=== PATIENT | female | born 1945 | race Hispanic/Latino ===

== ENCOUNTER 2020-11-29 00:52 | Emergency (ER) | payer OTHER ==
[2020-11-29 01:36] LABS: Absolute Lymphocytes (CBC) 0.8 K/uL (0.7-4.9); Basophils % 0.5 % (0-1.3); Lymphocytes % 6.6 % (15.3-44.8); MPV 9.1 fL (7.6-11.3); RBC Red Blood Cell Count 4.41 M/uL (3.86-4.86)
[2020-11-29] MEDS ORDERED: ONDANSETRON 4 MG/2 ML VIAL ONE ×2 (01:41→01:45)
[2020-11-29] MEDS ORDERED: NA CHLORIDE 0.9% 1,000 ML ONE (01:41)
[2020-11-29] MEDS ORDERED: NA CHLORIDE 0.9% 0 ML ONE (01:45)
[2020-11-29 01:47] LABS: ALT/SGPT 28 U/L (12-78); AST/SGOT 29 U/L (15-37); Albumin 3.9 g/dL (3.4-5.0); Alkaline Phosphatase 105 U/L (45-117); BUN Blood Urea Nitrogen 23 mg/dL (7-18); Bicarbonate 29 mmol/L (21-32); Bilirubin Direct < 0.1 mg/dL (0-0.2); Bilirubin Total 0.4 mg/dL (0.2-1.0); Glucose Level 139 mg/dL (74-106); Lipase 283 U/L (73-393); Potassium 4.2 mmol/L (3.5-5.1); Protein, Total 7.7 g/dL (6.4-8.2); Sodium Level 140 mmol/L (136-145)
[2020-11-29 04:00] LABS: Urine Bacteria <20 /HPF (<20); Urine RBC <5 /HPF (NONE SEEN)
--- NOTE | 2020-11-29 04:32 | ER ---
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 S/S STARTED APPROX 1.5 HRS AGO. Coronavirus screen: Vaccine status: Patient reports receiving the 2nd dose of the covid vaccine. Ebola Screen: No symptoms or risks identified at this time. Initial Sepsis Screen: Does the patient meet any 2 criteria? No. Patient's initial sepsis screen is negative. Does the patient have a suspected source of infection? No. Patient's initial sepsis screen is negative. Risk Assessment: Do you want to hurt yourself or someone else? Patient reports no desire to harm self or others. Onset of symptoms was November 28, 2020. 01:05 Method Of Arrival: Ambulatory dc2 01:05 Acuity: PAULA 3 dc2 Triage Assessment: 01:09 General: Appears in no apparent distress. Behavior is calm, cooperative, appropriate dc2 for age. Pain: Complains of pain in abdomen, head (posterior) Pain radiates to shoulders Pain currently is 4 out of 10 on a pain scale. at worst was 10 out of 10 on a pain scale. level that patient reports is acceptable is 0 out of 10 on a pain scale. Quality of pain is described as aching, crampy, Pain began 2 hours ago. EENT: No signs and/or symptoms were reported regarding the EENT system. Neuro: Level of Consciousness is awake, alert, Oriented to person, place, time, situation, Reports headache "seeing lights". Cardiovascular: No deficits noted. Rhythm is sinus rhythm. Respiratory: No deficits noted. GI: Reports diarrhea, vomiting. : No signs and/or symptoms were reported regarding the genitourinary system. Derm: No signs and/or symptoms reported regarding the dermatologic system. Musculoskeletal: Reports pain in shoulders. Historical: - Allergies: 01:09 No Known Allergies; dc2 - Home Meds: : Unable to obtain [Active]; dc2 - PMHx: : Asthma; High Cholesterol; Hypothyroidism; Pancreatitis; dc2 - PSHx: : HYSTERECTOMY; Cholecystectomy; Hemorrhoidectomy; dc2 - Immunization history:: Adult Immunizations up to date, Client reports receiving the 2nd dose of the Covid vaccine. - Social history:: Smoking status: Patient denies any tobacco usage or history of. Patient/guardian denies using alcohol, street drugs. - Family history:: not pertinent. - Hospitalizations: : No recent hospitalization is reported. Screenin:13 Abuse screen: Denies threats or abuse. Denies injuries from another. Nutritional dc2 screening: No deficits noted. Tuberculosis screening: No symptoms or risk factors identified. Fall Risk None identified. Assessment: 01:00 General: Appears in no apparent distress. uncomfortable, slender, well groomed, dc2 Behavior is calm, cooperative, Yoruba speaking only, son at bedside with .. 01:00 Pain: Denies pain. Neuro: No deficits noted. Denies blurred vision dizziness, dc2 photophobia. 01:00 Neuro: Reports headache occipital area, back of head that radiates into neck and dc2 shoulders, denies any headache or pain at this time in the ER. 01:00 Cardiovascular: No deficits noted. Denies chest pain, shortness of breath. Respiratory: dc2 No deficits noted. Breath sounds are clear bilaterally. 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 Has not vomited since. Denies nausea at this time. Bowel sounds present X 4 quads. : No signs and/or symptoms were reported regarding the genitourinary system. Musculoskeletal: No deficits noted. Capillary refill < 3 seconds, in bilateral toes. Pt ambulate with steady gait into room 26 with son at side. Vital Signs: 01:05 BP 135 / 73; Pulse 88; Resp 18 S; Temp 98.4(O); Pulse Ox 99% ; Weight 65.77 kg (R); dc2 Height 4 ft. 11 in. (149.86 cm); Pain 4/10; 01:45 BP 135 / 63; Pulse 73; Resp 17; Pulse Ox 99% ; Pain 0/10; dc2 02:45 BP 134 / 69; Pulse 71; Resp 16; Pulse Ox 99% ; Pain 0/10; dc2 03:45 BP 112 / 48; Pulse 72; Resp 16; Pulse Ox 98% ; Pain 0/10; dc2 04:45 BP 127 / 57; Pulse 83; Resp 16; Temp 97.2(O); Pulse Ox 99% on R/A; Pain 0/10; dc2 01:05 Body Mass Index 29.29 (65.77 kg, 149.86 cm) dc2 ED Course: 00:54 Patient arrived in ED. bp1 01:03 Sarath Ibrahim MD is Attending Physician. rn 01:09 Triage completed. dc2 01:09 Arm band placed on Patient placed in an exam room, on a stretcher, on court recording monitor, dc2 on pulse oximetry. 01:13 Patient has correct armband on for positive identification. Placed in gown. Bed in low dc2 position. Call light in reach. Side rails up X 1. 01:17 Basic Metabolic Panel Sent. dc2 01:17 CBC with Diff Sent. dc2 01:17 Hepatic Function Sent. dc2 01:[address] Scan. dc2 01:30 phototypesetting equipment monitor on. Pulse ox on. NIBP on. Door closed. Lights dimmed. Warm blanket dc2 given. 01:47 No provider procedures requiring assistance completed. dc2 01:[address] via stretcher. dc2 01:58 No apparent distress. dc2 02:11 Patient moved back from CT. dc2 02:15 CT Abd/Pelvis - IV Contrast Only In Process Unspecified. EDMS 02:30 Bed in low position. Call light in reach. Side rails up X 1. Adult w/ patient. Cardiac dc2 monitor on. Pulse ox on. NIBP on. Door closed. Lights dimmed. 03:30 Assisted to bathroom. Urine sample collected and sent to lab. dc2 03:30 Urine collected: clean catch specimen, clear, Amount Voided: 800mL. dc2 04:31 Mario Fuchs MD is Referral Physician. rn 04:52 IV discontinued, intact, bleeding controlled, No redness/swelling at site. Pressure dc2 dressing applied. Administered Medications: 01:16 Drug: NS 0.9% 1000 ml Route: IV; Rate: 1000 ml; Site: right antecubital; dc2 02:33 Follow up: IV Status: Completed infusion; IV Intake: 1000ml dc2 01:17 Drug: Zofran (Ondansetron) 4 mg Route: IVP; Site: right antecubital; dc2 02:33 Follow up: Response: Nausea is decreased dc2 04:28 Drug: LoMOTIL (diphenoxylate-atropine) 2 tabs Route: PO; dc2 04:46 Follow up: Response: No adverse reaction dc2 04:51 Follow up: Response: No adverse reaction dc2 Intake: 02:33 IV: 1000ml; Total: 1000ml. dc2 Output: 03:40 Urine: 800ml (Voided); Total: 800ml. dc2 Outcome: 04:32 Discharge ordered by . rn 04:52 Discharged to home ambulatory. dc2 04:52 Condition: stable 04:52 Discharge instructions given to Instructed on discharge instructions, follow up and referral plans. Demonstrated understanding of instructions, follow-up care, Prescriptions given X 1. 04:55 Patient left the ED. dc2 Signatures: Dispatcher [employer] EDMS Sarath Ibrahim MD MD rn Paniauga, Brittany bp1 Reynard, Mike, RN RN mr2 Latesha Dawn RN RN dc2 Corrections: (The following items were deleted from the chart) 01:58 00:58 [place], JERRELL is Primary Nurse. mr2 dc2
--- NOTE | 2020-11-29 04:32 | EDPHYS ---
Physician Documentation [facility] Name: Rosalba Henry Age: 75 yrs Sex: Female : 1945 Arrival Date: 11/29/2020 Time: 00:54 Bed 26 Private MD: ED Physician Sarath Ibrahim HPI: 11/29 01:23 This 75 yrs old Female presents to ER via Ambulatory with complaints of rn Vomiting/Diarrhea. 01:23 The patient presents to the emergency department with nausea, vomiting, diarrhea, rn abdominal pain. Onset: The symptoms/episode began/occurred today. Possible causes: unknown. The symptoms are aggravated by nothing. The symptoms are alleviated by nothing. Associated signs and symptoms: Pertinent positives: abdominal pain, diarrhea, nausea, vomiting, Pertinent negatives: GI bleeding. Severity of symptoms: At their worst the symptoms were moderate in the emergency department the symptoms have improved. The patient has experienced similar episodes in the past. The patient has been recently seen by a physician:. Patient reports 5 or 6 episodes of diarrhea along with one episode of vomiting today. Family member brought her in because she had numerous episodes of diarrhea. Diarrhea was nonbloody. Emesis was nonbloody. Recently seen by Dr. Fuchs with stool studies and family told was okay. Family member reports intermittent episodes of diarrhea but each episode less than today's amount of diarrhea. No fever. Reports abdominal pain has improved but initially lower abdominal pain.. Historical: - Allergies: 01:09 No Known Allergies; dc2 - Home Meds: :09 Unable to obtain [Active]; dc2 - PMHx: 01:09 Asthma; High Cholesterol; Hypothyroidism; Pancreatitis; dc2 - PSHx: 01:09 HYSTERECTOMY; Cholecystectomy; Hemorrhoidectomy; dc2 - Immunization history:: Adult Immunizations up to date, Client reports receiving the 2nd dose of the Covid vaccine. - Social history:: Smoking status: Patient denies any tobacco usage or history of. Patient/guardian denies using alcohol, street drugs. - Family history:: not pertinent. - Hospitalizations: : No recent hospitalization is reported. ROS: 01:23 Constitutional: Negative for fever, chills, and weight loss, Eyes: Negative for injury, rn pain, redness, and discharge, ENT: Negative for injury, pain, and discharge, Neck: Negative for injury, pain, and swelling, Cardiovascular: Negative for chest pain, palpitations, and edema, Respiratory: Negative for shortness of breath, cough, wheezing, and pleuritic chest pain, Abdomen/GI: Positive for abdominal pain/nausea/vomiting/diarrhea Back: Negative for injury and pain, : Negative for injury, bleeding, discharge, and swelling, MS/Extremity: Negative for injury and deformity, Skin: Negative for injury, rash, and discoloration, Neuro: Negative for headache, weakness, numbness, tingling, and seizure. Exam: 01:23 Constitutional: This is a well developed, well nourished patient who is awake, alert, rn and in no acute distress. Head/Face: Normocephalic, atraumatic. Eyes: Pupils equal round and reactive to light, extra-ocular motions intact. Lids and lashes normal. Conjunctiva and sclera are non-icteric and not injected. Cornea within normal limits. Periorbital areas with no swelling, redness, or edema. ENT: Moist mucous membranes Cardiovascular: Regular rate and rhythm. No pulse deficits. Respiratory: No increased work of breathing, no retractions or nasal flaring. Abdomen/GI: Soft, non-tender, nondistended, no masses Skin: Warm, dry MS/ Extremity: Pulses equal, no cyanosis. Neuro: Awake and alert, GCS 15, oriented to person, place, time, and situation. Motor strength 5/5 in all extremities. Sensory grossly intact. Cerebellar exam normal. Vital Signs: 01:05 BP 135 / 73; Pulse 88; Resp 18 S; Temp 98.4(O); Pulse Ox 99% ; Weight 65.77 kg (R); dc2 Height 4 ft. 11 in. (149.86 cm); Pain 4/10; 01:45 BP 135 / 63; Pulse 73; Resp 17; Pulse Ox 99% ; Pain 0/10; dc2 02:45 BP 134 / 69; Pulse 71; Resp 16; Pulse Ox 99% ; Pain 0/10; dc2 03:45 BP 112 / 48; Pulse 72; Resp 16; Pulse Ox 98% ; Pain 0/10; dc2 04:45 BP 127 / 57; Pulse 83; Resp 16; Temp 97.2(O); Pulse Ox 99% on R/A; Pain 0/10; dc2 01:05 Body Mass Index 29.29 (65.77 kg, 149.86 cm) dc2 MDM: 01:03 Patient medically screened. rn 04:31 Differential diagnosis: Nonspecific abd pain, gastritis, pancreatitis, appendicitis, rn diverticulitis, viral gastroenteritis, gastroenteritis. Data reviewed: vital signs, nurses notes, lab test result(s), radiologic studies, CT scan, and as a result, I will discharge patient. Counseling: I had a detailed discussion with the patient and/or guardian regarding: the historical points, exam findings, and any diagnostic results supporting the discharge/admit diagnosis, lab results, radiology results, the need for outpatient follow up, to return to the emergency department if symptoms worsen or persist or if there are any questions or concerns that arise at home. Response to treatment: the patient's symptoms have markedly improved after treatment, and as a result, I will discharge patient. Special discussion: Based on the patient's Hx, exam, and Dx evaluation, there is no indication for emergent surgery or inpatient Tx. It is understood by the patient/guardian that if the Sx's persist or worsen they need to return immediately for re-evaluation. I discussed with the patient/guardian in detail that at this point there is no indication for admission to the hospital. It is understood, however, that if the symptoms persist or worsen the patient needs to return immediately for re-evaluation. ED course: Patient without any further nausea or vomiting or diarrhea while here in ER. Labs and swabs unremarkable. UA clean. CT abdomen pelvis negative for acute findings. Will DC home with return precautions and as needed Zofran. 11/29 01:08 Order name: Basic Metabolic Panel; Complete Time: 02: rn 11/29 01:08 Order name: CBC with Diff; Complete Time: : rn 11/29 01:08 Order name: Hepatic Function; Complete Time: : rn 11/29 01:08 Order name: Lipase; Complete Time: : rn 11/29 01:10 Order name: Urine Microscopic Only; Complete Time: 04:10 rn 11/29 01:08 Order name: IV Saline Lock; Complete Time: : rn 11/29 01:08 Order name: Labs collected and sent; Complete Time: : rn 11/29 01:08 Order name: CT Abd/Pelvis - IV Contrast Only rn 11/29 01:10 Order name: Urine Dipstick-Ancillary (obtain specimen); Complete Time: 04:29 rn 11/29 01:24 Order name: SARS-COV-2 RT PCR; Complete Time: 02:32 EDMS Administered Medications: 01:16 Drug: NS 0.9% 1000 ml Route: IV; Rate: 1000 ml; Site: right antecubital; dc2 02:33 Follow up: IV Status: Completed infusion; IV Intake: 1000ml dc2 01:17 Drug: Zofran (Ondansetron) 4 mg Route: IVP; Site: right antecubital; dc2 02:33 Follow up: Response: Nausea is decreased dc2 04:28 Drug: LoMOTIL (diphenoxylate-atropine) 2 tabs Route: PO; dc2 04:46 Follow up: Response: No adverse reaction dc2 04:51 Follow up: Response: No adverse reaction dc2 Disposition Summary: 11/29/20 04:32 Discharge Ordered Location: Home rn Problem: new rn Symptoms: have improved rn Condition: Stable rn Diagnosis - Vomiting, unspecified rn - Diarrhea, unspecified rn Followup: rn - With: Mario Fuchs MD - When: As needed - Reason: Recheck today's complaints, Re-evaluation by your physician Discharge Instructions: - Discharge Summary Sheet rn - Diarrhea, Adult rn - Nausea and Vomiting, Adult rn Forms: - Medication Reconciliation Form rn - Thank You Letter rn - Antibiotic internal audit consultant - Prescription Opioid Use rn Prescriptions: - ondansetron 4 mg Oral tablet,disintegrating - take 1 tablet by ORAL route every 8 hours As needed; 20 tablet; Refills: 0, rn Product Selection Permitted Signatures: Dispatcher [employer] EDOK Sarath Ibrahim MD MD rn López, Latesha RN RN dc2 Corrections: (The following items were deleted from the chart) 01: 01:10 CORONAVIRUS+MR.LAB.BRZ ordered. [facility] EDOK 01:25 01:23 Constitutional: Negative for fever, chills, and weight loss, Eyes: Negative for rn injury, pain, redness, and discharge, Neck: Negative for injury, pain, and swelling, Cardiovascular: Negative for chest pain, palpitations, and edema, Respiratory: Negative for shortness of breath, cough, wheezing, and pleuritic chest pain, Abdomen/GI: Positive for abdominal pain/nausea/vomiting/diarrhea Back: Negative for injury and pain, : Negative for injury, bleeding, discharge, and swelling, MS/Extremity: Negative for injury and deformity, Skin: Negative for injury, rash, and discoloration, Neuro: Negative for headache, weakness, numbness, tingling, and seizure, rn
[2020-11-29] MEDS ORDERED: DIPHENOX/ATROP SULF 1 TAB PO ONE (04:53)
[2020-11-29 05:11] VITALS: BP 127/57; TEMP 97.2; O2SAT 99
--- NOTE | 2020-11-29 13:48 | RAD REPORT ---
EXAM DESCRIPTION: CT - Abdomen Pelvis W Contrast - 11/29/2020 6:56 am CLINICAL HISTORY: The patient is 75 years old and is Female; Abd pain;Nausea / vomiting TECHNIQUE: Axial computed tomography images of the abdomen and pelvis with intravenous contrast. S agittal and coronal reformatted images were created and reviewed. This CT exam was performed using one or more of the following dose reduction techniques: automated exposure control, adjustment of t he mA and/or kV according to patient size, and/or use of iterative reconstruction technique. COMPARISON: No relevant prior studies available. FINDINGS: Lung bases: Unremarkable. No mass. No consolidation. Mediastinum: Small hiatal hernia. ABDOMEN: Liver: Unremarkable. No mass. Gallbladder and bile ducts: Gallbladder is surgically absent. No ductal dilation. Pancreas: Unremarkable. No mass. No ductal dilation. Spleen: Unremarkable. No splenomegaly. Adrenals: Unremarkable. No mass. Kidneys and ureters: Unremarkable. No solid mass. No hydronephrosis. Stomach and bowel: Sigmoid diverticula. No obstruction. No mucosal thickening. PELVIS: Appendix: No findings to suggest acute appendicitis. Bladder: Unremarkable. No mass. Reproductive: Uterus is not seen. ABDOMEN and PELVIS: Intraperitoneal space: Unremarkable. No free air. No significant fluid collection. Bones/joints: No acute fracture. No dislocation. Soft tissues: Hyperdensities within the anterior abdominal wall. Correlate with surgical history. Vasculature: Scattered atherosclerotic vascular calcifications. No abdominal aortic aneurysm. Lymph nodes: Unremarkable. No enlarged lymph nodes. IMPRESSION: No acute findings in the abdomen or pelvis. Electronically signed by: Jeremias Hill MD 11/29/2020 2:50 AM CDT Due to temporary technical issues with the PACS/Fluency reporting system, reports are being signed by the in house radiologists without review as a courtesy to insure prompt reporting. The interpreting radiologist is fully responsible for the content of the report.
== END 2020-11-29 04:55 | disposition home or self-care (01) ==
LOC: ER 00:52
DX: R19.7 Diarrhea, unspecified (principal); Z20.822 Contact with and (suspected) exposure to COVID-19
CPT/HCPCS: 96361; 85025; 80048; 36415; 80076; 81015; 83690; 74177; 96374; 99285; U0003; Q9967; J7030; J2405; J7040

== ENCOUNTER 2022-09-06 15:04 | Emergency (ER) | payer OTHER ==
--- OUTSIDE RECORDS SUMMARY | 2022-09-06 15:11 | XMS REPORT | Continuity of Care Document ---
:1945 [facility] t Address [address] [address] [place] [address] Care Team Providers Name Role Phone VAISHALI BELTRAN Primary Care Physician Unavailable Junior Bautista Attending Clinician CATHERINE MORALES Attending Clinician Unavailable Catherine Morales MD Attending Clinician RULA BROTHERS III Attending Clinician Unavailable King ABEL MD, James C Attending Clinician Unknown, Attending Attending Clinician Unavailable Doctor Unassigned, [place] Attending Clinician Unavailable MATTHIAS ALLEN Attending Clinician Unavailable Vaccine, [facility] Attending Clinician Unavailable Matthias Allen DO Attending Clinician Nurse, [place] Pob Immunization Attending Clinician Unavailable Miller_S_AH Attending Clinician Unavailable Bao-Mbayo_A_AH Attending Clinician Unavailable DRE BACON Attending Clinician Unavailable CATHERINE MORALES Admitting Clinician Unavailable Meri Admitting Clinician Unavailable Bao-Mbayo_A_AH Admitting Clinician Unavailable DRE BACON Admitting Clinician Unavailable Payers Payer Name Policy Type Policy Number Effective Date Expiration Date S yvette [facility] [place] [id number] 2019 CLASSIC NO PREMIUM 00:00:00 [facility] [place] - [id number] 2019 [place] 00:00:00 (MEDICARE REPLACEMENT/ADVANT AGE - HMO) Problems Condition Condition Condition Status Onset Resolution Last Treating Co mments Source Name Details Category Date Date Treatment Clinician Date Mild Mild Problem Active [facility] dementia Dementia 07-11 Family 00:00: Practic 00 e Senile Senile Problem Active [facility] purpura Purpura 07-11 Family 00:00: Practic 00 e Recurrent Recurrent Problem Active Kishan yaquelin depression Depression 07-11 Fa cristopher 00:00: Practic 00 e Asthma Asthma Problem Active [facility] 07-11 Family 00:00: Practic 00 e Gastroesop Gastroesop Problem Active [facility] hageal hageal 07-11 Family reflux Reflux 00:00: Practic disease Disease 00 e Osteoarthr Osteoarthr Problem Active [facility] itis itis 07-11 Family 00:00: Practic 00 e Thyroid Thyroid Disease Active 2016-02 [facility] nodule nodule 2-21 ity of 00:00: [facility] Abnormal Abnormal Disease Active Unive rs pigmentati pigmentati 9-20 it y [place] [facility] Primary Primary Disease Active [facility] hypothyroi hypothyroi 9-20 it y of dism dism 00:00: [facility] Neck Neck Disease Active [facility] discomfort discomfort 9-20 it y of 00:00: [facility] Knee pain, Knee pain, Disease Active U nivers right right 5-10 ity of 00:00: [facility] Knee pain, Knee pain, Disease Active U nivers right right 5-10 ity of 00:00: [place] [facility] Amnesia Amnesia Problem Active 2022-08-10 Me moria (finding) (finding) 11:30:46 l Active Neymar Problem 08/10/2022 [facility] Headache Headache Problem Active 2022-08-10 Memoria (finding) (finding) 11:30:46 l Active Neymar Problem 08/10/2022 [facility] Hyperlipid Hyperlipi Problem Active 2022-08-10 Memoria emia demia 11:30:46 l (disorder) (disorder) He rmann Active Problem 08/10/2022 [facility] Hypothyroi Hypothyro Problem Active 2022-08-10 Memoria dism idism 11:30:46 l (disorder) (disorder) He rmann Active Problem 08/10/2022 [facility] Impaired Impaired Problem Active 2022-08-10 Memoria cognition cognition 11:30:46 l (finding) (finding) Herm emma Active Problem 08/10/2022 [facility] Osteoporos Osteoporo Problem Active 2022-08-10 Memoria is sis 11:30:46 l (disorder) (disorder) He rmann Active Problem 08/10/2022 [facility] Paresthesi Problem Active 2022-08-10 M emoria a Paresthesi 11:30:46 l (finding) a Neymar (finding) Active Problem 08/10/2022 [facility] Simple Simple Problem Active 2022-08-10 [facility] obesity obesity 11:30:46 l (disorder) (disorder) He rmann Active Problem 08/10/2022 [facility] Blepharosp Blepharos Problem Active 2022-08-10 Memoria asm pasm 11:30:46 l (disorder) (disorder) He rmann Active Problem 08/10/2022 [facility] Allergies, Adverse Reactions, Alerts Allergy Allergy Status Severity Reaction(s) Onset Inactive Treating Comm ents Source Name Type Date Date Clinician NO KNOWN Drug Active [facility] ALLERGIE Class ity of [facility] No Known No Known Active Memori a Medicati Medicati l on on [place] Allergie Allergie s s Social History Social Habit Start Date Stop Date Quantity Comments Source Exposure to 2022-04-30 2022-05-10 Not sure [facility] SARS-CoV-2 (event) 00:00:00 12:53:00 Medica l Branch Sex Ass[birth year] [facility] 00:00:00 00:00:00 Medical Branch Smoking Status Start Date Stop Date Source Tobacco smoking status [facility] Medications Ordered Filled Start Stop Current Ordering Indication Dosage Frequency Signature Comments Components Source Medication Medication Date Date Medication? Clinician (SIG) Name Name atorangelatayung Yes 40 mg = 1 M emoria n 40 mg 6-30 tab, PO, l oral tablet 19:11: Bedtime, # [place] 00 30 tab, 0 Refill(s) sucralfate Yes 1 gm = 1 Mem oria 1 g oral 6-30 tab, PO, l tablet 19:11: Before Neymar 00 Meals & Bedtime, # 120 tab, 3 Refill(s) iopamidol 2022- No 65mL 65 mL, Unive rs (ISOVUE 402 04-02 Intravenou ity o f 370-500 mL) 19:54: 19:55 s, ONCE, 1 [place] injection 00 :00 dose, On Medica l 65 mL 05/10/22 Branch at 1515, Routine OMEPRAZOLE Yes Take by Univ ers ORAL -02 mouth. ity of 16:41: [place] 36 [facility] benzonatate 2022-0 Yes [id number] 100mg Take 1 Univers 100 mg 1-26 capsule by ity of capsule 00:00: mouth [place] 00 every 8 Medical (eight) Branch hours as needed for Cough. benzonatate 2022-0 Yes [id number] 100mg Take 1 Univers 100 mg 1-26 capsule by ity of capsule 00:00: mouth [place] 00 every 8 Medical (eight) Branch hours as needed for Cough. Methylpredn 2022- No [id number] 4mg Take 1 Univers isolone 4 -05 04- tablet by ity of mg tablet 00:00: 05:59 mouth [place] 00 :00 every 12 Medical (twelve) Branch hours for 5 days. memantine Yes 10 mg = 1 Mem oria 10 mg oral 3-09 tab, PO, l tablet 17:10: BID, # 180 Reny nn 00 tab, 3 Refill(s), Pharmacy: [facility], 147.32, cm, 01/08/21 15:49:00 ENDOCRINOLOGY SPECIALIST, Height, 66.818, kg, 01/08/21 15:49:00 ENDOCRINOLOGY SPECIALIST, Weight memantine Yes 10 mg = 1 Mem oria 10 mg oral 3-09 tab, PO, l tablet 17:10: BID, # 180 Reny nn 00 tab, 3 Refill(s), Pharmacy: [facility], 147.32, cm, 01/08/21 15:49:00 ENDOCRINOLOGY SPECIALIST, Height, 66.818, kg, 01/08/21 15:49:00 ENDOCRINOLOGY SPECIALIST, Weight memantine 2021-0 Yes 10 mg = 1 Mem oria 10 mg oral 3-09 tab, PO, l tablet 17:10: BID, # 180 Reny nn 00 tab, 3 Refill(s), Pharmacy: [facility], 147.32, cm, 01/08/21 15:49:00 ENDOCRINOLOGY SPECIALIST, Height, 66.818, kg, 01/08/21 15:49:00 ENDOCRINOLOGY SPECIALIST, Weight memantine 2021-0 Yes 10 mg = 1 Mem oria 10 mg oral 3-09 tab, PO, l tablet 17:10: BID, # 180 Reny nn 00 tab, 3 Refill(s), Pharmacy: [facility], 147.32, cm, 01/08/21 15:49:00 ENDOCRINOLOGY SPECIALIST, Height, 66.818, kg, 01/08/21 15:49:00 ENDOCRINOLOGY SPECIALIST, Weight memantine 2021-0 Yes 10 mg = 1 Mem oria 10 mg oral 3-09 tab, PO, l tablet 17:10: BID, # 180 Reny nn 00 tab, 3 Refill(s), Pharmacy: [facility] 482, 147.32, cm, 01/08/21 15:49:00 ENDOCRINOLOGY SPECIALIST, Height, 66.818, kg, 01/08/21 15:49:00 ENDOCRINOLOGY SPECIALIST, Weight memantine 2021-0 Yes 10 mg = 1 Mem oria 10 mg oral 3-09 tab, PO, l tablet 17:10: BID, # 180 Reny nn 00 tab, 3 Refill(s), Pharmacy: [facility] 482, 147.32, cm, 01/08/21 15:49:00 ENDOCRINOLOGY SPECIALIST, Height, 66.818, kg, 01/08/21 15:49:00 ENDOCRINOLOGY SPECIALIST, Weight gabapentin 2-0 No 300 mg = 1 M emoria 300 MG Oral 1-19 cap, PO, l Capsule 22:51: Bedtime, # Herm emma 00 90 cap, 3 Refill(s), Pharmacy: [facility], 147.32, cm, 01/08/21 15:49:00 ENDOCRINOLOGY SPECIALIST, Height, 66.818, kg, 01/08/21 15:49:00 ENDOCRINOLOGY SPECIALIST, Weight gabapentin 2022-0 No 300 mg = 1 M emoria 300 MG Oral 1-19 cap, PO, l Capsule 22:51: Bedtime, # Herm emma 00 90 cap, 3 Refill(s), Pharmacy: [facility], 147.32, cm, 01/08/21 15:49:00 ENDOCRINOLOGY SPECIALIST, Height, 66.818, kg, 01/08/21 15:49:00 ENDOCRINOLOGY SPECIALIST, Weight gabapentin 2022-0 No 300 mg = 1 M emoria 300 MG Oral 1-19 cap, PO, l Capsule 22:51: Bedtime, # Herm emma 00 90 cap, 3 Refill(s), Pharmacy: [facility] 482, 147.32, cm, 01/08/21 15:49:00 ENDOCRINOLOGY SPECIALIST, Height, 66.818, kg, 01/08/21 15:49:00 ENDOCRINOLOGY SPECIALIST, Weight gabapentin 2022-0 No 300 mg = 1 M emoria 300 MG Oral 1-19 cap, PO, l Capsule 22:51: Bedtime, # Herm emma 00 90 cap, 3 Refill(s), Pharmacy: [facility] 482, 147.32, cm, 01/08/21 15:49:00 ENDOCRINOLOGY SPECIALIST, Height, 66.818, kg, 01/08/21 15:49:00 ENDOCRINOLOGY SPECIALIST, Weight gabapentin 2022-0 No 300 mg = 1 M emoria 300 MG Oral 1-19 cap, PO, l Capsule 22:51: Bedtime, # Herm emma 00 90 cap, 3 Refill(s), Pharmacy: [facility] 482, 147.32, cm, 01/08/21 15:49:00 ENDOCRINOLOGY SPECIALIST, Height, 66.818, kg, 01/08/21 15:49:00 ENDOCRINOLOGY SPECIALIST, Weight gabapentin 2022-0 No 300 mg = 1 M emoria 300 MG Oral 1-19 cap, PO, l Capsule 22:51: Bedtime, # Herm emma 00 90 cap, 3 Refill(s), Pharmacy: [facility] 482, 147.32, cm, 01/08/21 15:49:00 ENDOCRINOLOGY SPECIALIST, Height, 66.818, kg, 01/08/21 15:49:00 ENDOCRINOLOGY SPECIALIST, Weight gabapentin 2022-0 No 300 mg = 1 M emoria 300 MG Oral 1-19 cap, PO, l Capsule 22:19: Bedtime, # Herm emma 00 90 cap, 3 Refill(s), Pharmacy: [facility] 482, 147.32, cm, 01/08/21 15:49:00 ENDOCRINOLOGY SPECIALIST, Height, 66.818, kg, 01/08/21 15:49:00 ENDOCRINOLOGY SPECIALIST, Weight gabapentin 2022-0 No 300 mg = 1 M emoria 300 MG Oral 1-19 cap, PO, l Capsule 22:19: Bedtime, # Herm emma 00 90 cap, 3 Refill(s), Pharmacy: [facility] 482, 147.32, cm, 01/08/21 15:49:00 ENDOCRINOLOGY SPECIALIST, Height, 66.818, kg, 01/08/21 15:49:00 ENDOCRINOLOGY SPECIALIST, Weight gabapentin 2022-0 No 300 mg = 1 M emoria 300 MG Oral 1-19 cap, PO, l Capsule 22:19: Bedtime, # Herm emma 00 90 cap, 3 Refill(s), Pharmacy: [facility] 482, 147.32, cm, 01/08/21 15:49:00 ENDOCRINOLOGY SPECIALIST, Height, 66.818, kg, 01/08/21 15:49:00 ENDOCRINOLOGY SPECIALIST, Weight gabapentin 2022-0 No 300 mg = 1 M emoria 300 MG Oral 1-19 cap, PO, l Capsule 22:19: Bedtime, # Herm emma 00 90 cap, 3 Refill(s), Pharmacy: [facility] 482, 147.32, cm, 01/08/21 15:49:00 ENDOCRINOLOGY SPECIALIST, Height, 66.818, kg, 01/08/21 15:49:00 ENDOCRINOLOGY SPECIALIST, Weight gabapentin 2022-0 No 300 mg = 1 M emoria 300 MG Oral 1-19 cap, PO, l Capsule 22:19: Bedtime, # Herm emma 00 90 cap, 3 Refill(s), Pharmacy: [facility] 482, 147.32, cm, 01/08/21 15:49:00 ENDOCRINOLOGY SPECIALIST, Height, 66.818, kg, 01/08/21 15:49:00 ENDOCRINOLOGY SPECIALIST, Weight gabapentin 2022-0 No 300 mg = 1 M emoria 300 MG Oral 1-19 cap, PO, l Capsule 22:19: Bedtime, # Herm emma 00 90 cap, 3 Refill(s), Pharmacy: [facility] 482, 147.32, cm, 01/08/21 15:49:00 ENDOCRINOLOGY SPECIALIST, Height, 66.818, kg, 01/08/21 15:49:00 ENDOCRINOLOGY SPECIALIST, Weight gabapentin 2022-0 No 300 mg = 1 M emoria 300 MG Oral 1-19 cap, PO, l Capsule 22:18: Bedtime, # Herm emma 00 90 cap, 3 Refill(s), Pharmacy: [facility] 482, 147.32, cm, 01/08/21 15:49:00 ENDOCRINOLOGY SPECIALIST, Height, 66.818, kg, 01/08/21 15:49:00 ENDOCRINOLOGY SPECIALIST, Weight gabapentin 2-0 No 300 mg = 1 M emoria 300 MG Oral 1-19 cap, PO, l Capsule 22:18: Bedtime, # Herm emma 00 90 cap, 3 Refill(s), Pharmacy: [facility] 482, 147.32, cm, 01/08/21 15:49:00 ENDOCRINOLOGY SPECIALIST, Height, 66.818, kg, 01/08/21 15:49:00 ENDOCRINOLOGY SPECIALIST, Weight gabapentin 2-0 No 300 mg = 1 M emoria 300 MG Oral 1-19 cap, PO, l Capsule 22:18: Bedtime, # Herm emma 00 90 cap, 3 Refill(s), Pharmacy: [facility] 482, 147.32, cm, 01/08/21 15:49:00 ENDOCRINOLOGY SPECIALIST, Height, 66.818, kg, 01/08/21 15:49:00 ENDOCRINOLOGY SPECIALIST, Weight gabapentin 2-0 No 300 mg = 1 M emoria 300 MG Oral 1-19 cap, PO, l Capsule 22:18: Bedtime, # Herm emma 00 90 cap, 3 Refill(s), Pharmacy: [facility] 482, 147.32, cm, 01/08/21 15:49:00 ENDOCRINOLOGY SPECIALIST, Height, 66.818, kg, 01/08/21 15:49:00 ENDOCRINOLOGY SPECIALIST, Weight gabapentin 2022-0 No 300 mg = 1 M emoria 300 MG Oral 1-19 cap, PO, l Capsule 22:18: Bedtime, # Herm emma 00 90 cap, 3 Refill(s), Pharmacy: [facility] 482, 147.32, cm, 01/08/21 15:49:00 ENDOCRINOLOGY SPECIALIST, Height, 66.818, kg, 01/08/21 15:49:00 ENDOCRINOLOGY SPECIALIST, Weight gabapentin 2021-0 No 300 mg = 1 M emoria 300 MG Oral 1-19 cap, PO, l Capsule 22:18: Bedtime, # Herm emma 00 90 cap, 3 Refill(s), Pharmacy: [facility] 482, 147.32, cm, 01/08/21 15:49:00 ENDOCRINOLOGY SPECIALIST, Height, 66.818, kg, 01/08/21 15:49:00 ENDOCRINOLOGY SPECIALIST, Weight Celexa 2020-02 Yes PO, Daily, Memor ia 2-01 0 l 22:07: Refill(s) 2020-02 Yes PO, Daily, Memor ia 2-01 0 l 22:07: Refill(s) 2020-02 Yes PO, Daily, Memor ia 2-01 0 l 22:07: Refill(s) 2020-02 Yes PO, Daily, Memor ia 2-01 0 l 22:07: Refill(s) 2020-02 Yes PO, Daily, Memor ia 2-01 0 l 22:07: Refill(s) 2020-02 Yes PO, Daily, Memor ia 2-01 0 l 22:07: Refill(s) Smithtonex2020-02 Yes PO, Daily, Memor ia 2-01 0 l 22:07: Refill(s) Neymarex2020-02 Yes PO, Daily, Memor ia 2-01 0 l 22:07: Refill(s) SmithtoneX2020-02 Yes PO, Daily, Memor ia 2-01 0 l 22:07: Refill(s) eX2020-02 Yes PO, Daily, Memor ia 2-01 0 l 22:07: Refill(s) Smithtonex2020-02 Yes PO, Daily, Memor ia 2-01 0 l 22:07: Refill(s) Neymar 00 memantine 2020-02 Yes 10 mg = 1 Mem oria 10 mg oral 2-01 tab, PO, l tablet 22:06: BID, # 60 Tyrese n 00 tab, 4 Refill(s), Pharmacy: [facility], 147.32, cm, 01/08/21 15:49:00 ENDOCRINOLOGY SPECIALIST, Height, 66.818, kg, 01/08/21 15:49:00 ENDOCRINOLOGY SPECIALIST, Weight memantine 2020-02 Yes 10 mg = 1 Mem oria 10 mg oral 2-01 tab, PO, l tablet 22:06: BID, # 60 Tyrese n 00 tab, 4 Refill(s), Pharmacy: [facility] 482, 147.32, cm, 01/08/21 15:49:00 ENDOCRINOLOGY SPECIALIST, Height, 66.818, kg, 01/08/21 15:49:00 ENDOCRINOLOGY SPECIALIST, Weight memantine 2020-02 Yes 10 mg = 1 Mem oria 10 mg oral 2-01 tab, PO, l tablet 22:06: BID, # 60 Tyrese n 00 tab, 4 Refill(s), Pharmacy: [facility] 482, 147.32, cm, 01/08/21 15:49:00 ENDOCRINOLOGY SPECIALIST, Height, 66.818, kg, 01/08/21 15:49:00 ENDOCRINOLOGY SPECIALIST, Weight memantine 2020-02 Yes 10 mg = 1 Mem oria 10 mg oral 2-01 tab, PO, l tablet 22:06: BID, # 60 Tyrese n 00 tab, 4 Refill(s), Pharmacy: [facility] 482, 147.32, cm, 01/08/21 15:49:00 ENDOCRINOLOGY SPECIALIST, Height, 66.818, kg, 01/08/21 15:49:00 ENDOCRINOLOGY SPECIALIST, Weight memantine 2020-02 Yes 10 mg = 1 Mem oria 10 mg oral 2-01 tab, PO, l tablet 22:06: BID, # 60 Tyrese n 00 tab, 4 Refill(s), Pharmacy: [facility] 482, 147.32, cm, 01/08/21 15:49:00 ENDOCRINOLOGY SPECIALIST, Height, 66.818, kg, 01/08/21 15:49:00 ENDOCRINOLOGY SPECIALIST, Weight memantine 2020-02 Yes 10 mg = 1 Mem oria 10 mg oral 2-01 tab, PO, l tablet 22:06: BID, # 60 Tyrese n 00 tab, 4 Refill(s), Pharmacy: [facility] 482, 147.32, cm, 01/08/21 15:49:00 ENDOCRINOLOGY SPECIALIST, Height, 66.818, kg, 01/08/21 15:49:00 ENDOCRINOLOGY SPECIALIST, Weight gabapentin 2020-02 Yes 300 mg = 1 M emoria 300 MG Oral 2-01 cap, PO, l Capsule 22:05: Bedtime, # Herm emma 00 30 cap, 3 Refill(s), Pharmacy: [facility] 482, 147.32, cm, 01/08/21 15:49:00 ENDOCRINOLOGY SPECIALIST, Height, 66.818, kg, 01/08/21 15:49:00 ENDOCRINOLOGY SPECIALIST, Weight gabapentin 2020-02 Yes 300 mg = 1 M emoria 300 MG Oral 2-01 cap, PO, l Capsule 22:05: Bedtime, # Herm emma 00 30 cap, 3 Refill(s), Pharmacy: [facility] 482, 147.32, cm, 01/08/21 15:49:00 ENDOCRINOLOGY SPECIALIST, Height, 66.818, kg, 01/08/21 15:49:00 ENDOCRINOLOGY SPECIALIST, Weight gabapentin 2020-02 Yes 300 mg = 1 M emoria 300 MG Oral 2-01 cap, PO, l Capsule 22:05: Bedtime, # Herm emma 00 30 cap, 3 Refill(s), Pharmacy: [facility] 482, 147.32, cm, 01/08/21 15:49:00 ENDOCRINOLOGY SPECIALIST, Height, 66.818, kg, 01/08/21 15:49:00 ENDOCRINOLOGY SPECIALIST, Weight gabapentin 2020-02 Yes 300 mg = 1 M emoria 300 MG Oral 2-01 cap, PO, l Capsule 22:05: Bedtime, # Herm emma 00 30 cap, 3 Refill(s), Pharmacy: [facility] 482, 147.32, cm, 01/08/21 15:49:00 ENDOCRINOLOGY SPECIALIST, Height, 66.818, kg, 01/08/21 15:49:00 ENDOCRINOLOGY SPECIALIST, Weight gabapentin 2020-02 Yes 300 mg = 1 M emoria 300 MG Oral 2-01 cap, PO, l Capsule 22:05: Bedtime, # Herm emma 00 30 cap, 3 Refill(s), Pharmacy: [facility] 482, 147.32, cm, 01/08/21 15:49:00 ENDOCRINOLOGY SPECIALIST, Height, 66.818, kg, 01/08/21 15:49:00 ENDOCRINOLOGY SPECIALIST, Weight gabapentin 1-1 Yes 300 mg = 1 M emoria 300 MG Oral 2-01 cap, PO, l Capsule 22:05: Bedtime, # Herm emma 00 30 cap, 3 Refill(s), Pharmacy: [facility] 482, 147.32, cm, 01/08/21 15:49:00 ENDOCRINOLOGY SPECIALIST, Height, 66.818, kg, 01/08/21 15:49:00 ENDOCRINOLOGY SPECIALIST, Weight gabapentin 2021-0 Yes 300 mg = 1 M emoria 300 MG Oral 8-31 cap, PO, l Capsule 20:08: Bedtime, # Herm emma 00 30 cap, 3 Refill(s), Pharmacy: [facility], 149.86, cm, 10/08/20 14:36:00 CDT, Height, 68.182, kg, 10/08/20 14:36:00 CDT, Weight gabapentin 2021-0 Yes 300 mg = 1 M emoria 300 MG Oral 8-31 cap, PO, l Capsule 20:08: Bedtime, # Herm emma 00 30 cap, 3 Refill(s), Pharmacy: [facility] 482, 149.86, cm, 10/08/20 14:36:00 CDT, Height, 68.182, kg, 10/08/20 14:36:00 CDT, Weight gabapentin 2021-0 Yes 300 mg = 1 M emoria 300 MG Oral 8-31 cap, PO, l Capsule 20:08: Bedtime, # Herm emma 00 30 cap, 3 Refill(s), Pharmacy: [facility] 482, 149.86, cm, 10/08/20 14:36:00 CDT, Height, 68.182, kg, 10/08/20 14:36:00 CDT, Weight gabapentin 2021-0 Yes 300 mg = 1 M emoria 300 MG Oral 8-31 cap, PO, l Capsule 20:08: Bedtime, # Herm emma 00 30 cap, 3 Refill(s), Pharmacy: [facility] 482, 149.86, cm, 10/08/20 14:36:00 CDT, Height, 68.182, kg, 10/08/20 14:36:00 CDT, Weight gabapentin 2020-0 Yes 300 mg = 1 M emoria 300 MG Oral 8-31 cap, PO, l Capsule 20:08: Bedtime, # Herm emma 00 30 cap, 3 Refill(s), Pharmacy: [facility] 482, 149.86, cm, 10/08/20 14:36:00 CDT, Height, 68.182, kg, 10/08/20 14:36:00 CDT, Weight gabapentin 2020-0 Yes 300 mg = 1 M emoria 300 MG Oral 8-31 cap, PO, l Capsule 20:08: Bedtime, # Herm emma 00 30 cap, 3 Refill(s), Pharmacy: [facility] 482, 149.86, cm, 10/08/20 14:36:00 CDT, Height, 68.182, kg, 10/08/20 14:36:00 CDT, Weight memantine 5 2020-0 Yes = 1 tab, Me moria mg oral 8-31 PO, BID, # l tablet 20:06: 60 tab, 5 Tyrese n 00 Refill(s), Pharmacy: [facility], 149.86, cm, 10/08/20 14:36:00 CDT, Height, 68.182, kg, 10/08/20 14:36:00 CDT, Weight memantine 5 2020-0 Yes = 1 tab, Me moria mg oral 8-31 PO, BID, # l tablet 20:06: 60 tab, 5 Tyrese n 00 Refill(s), Pharmacy: [facility] 482, 149.86, cm, 10/08/20 14:36:00 CDT, Height, 68.182, kg, 10/08/20 14:36:00 CDT, Weight memantine 5 2020-0 Yes = 1 tab, Me moria mg oral 8-31 PO, BID, # l tablet 20:06: 60 tab, 5 Tyrese n 00 Refill(s), Pharmacy: [facility] 482, 149.86, cm, 10/08/20 14:36:00 CDT, Height, 68.182, kg, 10/08/20 14:36:00 CDT, Weight memantine 5 0 Yes = 1 tab, Me moria mg oral 8-31 PO, BID, # l tablet 20:06: 60 tab, 5 Tyrese n 00 Refill(s), Pharmacy: [facility] 482, 149.86, cm, 10/08/20 14:36:00 CDT, Height, 68.182, kg, 10/08/20 14:36:00 CDT, Weight memantine 5 0 Yes = 1 tab, Me moria mg oral 8-31 PO, BID, # l tablet 20:06: 60 tab, 5 Tyrese n 00 Refill(s), Pharmacy: [facility] 482, 149.86, cm, 10/08/20 14:36:00 CDT, Height, 68.182, kg, 10/08/20 14:36:00 CDT, Weight memantine 5 0 Yes = 1 tab, Me moria mg oral 8-31 PO, BID, # l tablet 20:06: 60 tab, 5 Tyrese n 00 Refill(s), Pharmacy: [facility] 482, 149.86, cm, 10/08/20 14:36:00 CDT, Height, 68.182, kg, 10/08/20 14:36:00 CDT, Weight Memantine 2020-0 Yes 5 mg = 1 Esequiel giovanny hydrochlori 2-25 tab, PO, l de 5 MG 22:21: BID, # 60 Reny nn Oral Tablet 00 tab, 3 [Namenda] Refill(s), Pharmacy: [facility] 482, 147.32, cm, 04/04/20 15:40:00 ENDOCRINOLOGY SPECIALIST, Height, 66.818, kg, 04/04/20 15:40:00 ENDOCRINOLOGY SPECIALIST, Weight Memantine 0 Yes 5 mg = 1 Esequiel giovanny hydrochlori 2-25 tab, PO, l de 5 MG 22:21: BID, # 60 Reny nn Oral Tablet 00 tab, 3 [Namenda] Refill(s), Pharmacy: [facility] 482, 147.32, cm, 04/04/20 15:40:00 ENDOCRINOLOGY SPECIALIST, Height, 66.818, kg, 04/04/20 15:40:00 ENDOCRINOLOGY SPECIALIST, Weight Memantine 0 Yes 5 mg = 1 Esequiel giovanny hydrochlori 2-25 tab, PO, l de 5 MG 22:21: BID, # 60 Reny nn Oral Tablet 00 tab, 3 [Namenda] Refill(s), Pharmacy: [facility] 482, 147.32, cm, 04/04/20 15:40:00 ENDOCRINOLOGY SPECIALIST, Height, 66.818, kg, 04/04/20 15:40:00 ENDOCRINOLOGY SPECIALIST, Weight Memantine 0 Yes 5 mg = 1 Esequiel giovanny hydrochlori 2-25 tab, PO, l de 5 MG 22:21: BID, # 60 Reny nn Oral Tablet 00 tab, 3 [Namenda] Refill(s), Pharmacy: [facility] 482, 147.32, cm, 04/04/20 15:40:00 ENDOCRINOLOGY SPECIALIST, Height, 66.818, kg, 04/04/20 15:40:00 ENDOCRINOLOGY SPECIALIST, Weight Memantine 0 Yes 5 mg = 1 Esequiel giovanny hydrochlori 2-25 tab, PO, l de 5 MG 22:21: BID, # 60 Reny nn Oral Tablet 00 tab, 3 [Namenda] Refill(s), Pharmacy: [facility] 482, 147.32, cm, 04/04/20 15:40:00 ENDOCRINOLOGY SPECIALIST, Height, 66.818, kg, 04/04/20 15:40:00 ENDOCRINOLOGY SPECIALIST, Weight Memantine 0 Yes 5 mg = 1 Esequiel giovanny hydrochlori 2-25 tab, PO, l de 5 MG 22:21: BID, # 60 Reny nn Oral Tablet 00 tab, 3 [Namenda] Refill(s), Pharmacy: [facility], 147.32, cm, 04/04/20 15:40:00 ENDOCRINOLOGY SPECIALIST, Height, 66.818, kg, 04/04/20 15:40:00 ENDOCRINOLOGY SPECIALIST, Weight Prolia 0 Yes SUB-Q, Memoria 1-07 q6mo, 0 l 17:19: Refill(s) [place] 00 pravastatin 0 Yes 10 mg, PO, Memoria 1-07 Daily, # l 17:19: 30 tab, 0 [place] Refill(s) Claritin Yes Daily, 0 Memor ia 1-07 Refill(s) l 17:19: Neymar sucralfate 0 Yes 1 gm, PO, Me moria 07 Bedtime, # l 17:19: 200 ml, 0 [place] 00 Refill(s) Thyroxine Yes 50 Memoria 1-07 microgram, l 17:19: PO, Daily, [place] 00 0 Refill(s) Omeprazole Yes 20 mg, PO, M emoria 07 BID, 0 l 17:19: Refill(s) Prolia Yes SUB-Q, Memoria 02-14 q6mo, 0 l 17:19: Refill(s) Pravastatin Yes 10 mg, PO, Memoria 02-14 Daily, # l 17:19: 30 tab, 0 [place] 00 Refill(s) Claritin Yes Daily, 0 Memor ia 02-14 Refill(s) l 17:19: [place] 00 Sucralfate Yes 1 gm, PO, Va moria 02-14 Bedtime, # l 17:19: 200 ml, 0 [place] 00 Refill(s) levothyroxi Yes 50 Memori a ne 1-07 microgram, l 17:19: PO, Daily, 0 Refill(s) omeprazole Yes 20 mg, PO, M emoria 02-14 BID, 0 l 17:19: Refill(s) Breo Yes 1 puff, Memoria Ellipta 100 1-07 INHALATION l mcg-25 mcg 17:19: , PRN, 0 Her [place] inhalation 00 Refill(s) powder Prolia Yes SUB-Q, Memoria 07 q6mo, 0 l 17:19: Refill(s) pravastatin Yes 10 mg, PO, Memoria 1-07 Daily, # l 17:19: 30 tab, 0 [place]ym[place] 00 Refill(s) Claritin 0 Yes Daily, 0 Memor ia 1-07 Refill(s) l 17:19: [place] sucralfate Yes 1 gm, PO, Me moria 07 Bedtime, # l 17:19: 200 ml, 0 [place] 00 Refill(s) Thyroxine Yes 50 Memoria 1-07 microgram, l 17:19: PO, Daily, [place] 00 0 Refill(s) Omeprazole Yes 20 mg, PO, M emoria 02-14 BID, 0 l 17:19: Refill(s) Prolia Yes SUB-Q, Memoria 02-14 q6mo, 0 l 17:19: Refill(s) [place] 00 Pravastatin Yes 10 mg, PO, Memoria 07 Daily, # l 17:19: 30 tab, 0 [place]ym[place] 00 Refill(s) Claritin Yes Daily, 0 Memor ia 02-14 Refill(s) l 17:19: [place] 00 Sucralfate Yes 1 gm, PO, Me moria 02-14 Bedtime, # l 17:19: 200 ml, 0 [place] 00 Refill(s) levothyroxi Yes 50 Memori a ne 1-07 microgram, l 17:19: PO, Daily, [place] 00 0 Refill(s) omeprazole Yes 20 mg, PO, M emoria 02-14 BID, 0 l 17:19: Refill(s) Breo Yes 1 puff, Memoria Ellipta 100 1-07 INHALATION l mcg-25 mcg 17:19: , PRN, 0 Her [place] inhalation 00 Refill(s) powder Prolia Yes SUB-Q, Memoria 07 q6mo, 0 l 17:19: Refill(s) pravastatin Yes 10 mg, PO, Memoria 1-07 Daily, # l 17:19: 30 tab, 0 [place] Refill(s) Claritin 0 Yes Daily, 0 Memor ia 02-14 Refill(s) l 17:19: [place] sucralfate Yes 1 gm, PO, Me moria 1-07 Bedtime, # l 17:19: 200 ml, 0 [place] 00 Refill(s) Thyroxine Yes 50 Memoria 1-07 microgram, l 17:19: PO, Daily, [place] 00 0 Refill(s) Omeprazole Yes 20 mg, PO, M emoria 02-14 BID, 0 l 17:19: Refill(s) Prolia Yes SUB-Q, Memoria 1-07 q6mo, 0 l 17:19: Refill(s) [place] 00 Pravastatin Yes 10 mg, PO, Memoria 107 Daily, # l 17:19: 30 tab, 0 [place] 00 Refill(s) Claritin Yes Daily, 0 Memor ia 02-14 Refill(s) l 17:19: [place] 00 Sucralfate Yes 1 gm, PO, Me moria 02-14 Bedtime, # l 17:19: 200 ml, 0 [place] 00 Refill(s) levothyroxi Yes 50 Memori a ne 1-07 microgram, l 17:19: PO, Daily, [place] 00 0 Refill(s) omeprazole Yes 20 mg, PO, M emoria 02-14 BID, 0 l 17:19: Refill(s) Breo Yes 1 puff, [facility] Ellipta 100 1-07 INHALATION l mcg-25 mcg 17:19: , PRN, 0 Her [place] inhalation 00 Refill(s) powder Prolia Yes SUB-Q, Mem[facility] 02-14 q6mo, 0 l 17:19: Refill(s) pravastatin Yes 10 mg, PO, Memoria 1-07 Daily, # l 17:19: 30 tab, 0 [place] 00 Refill(s) Claritin 0 Yes Daily, 0 Memor ia -07 Refill(s) l 17:19: [place] 00 sucralfate 0 Yes 1 gm, PO, Me moria 07 Bedtime, # l 17:19: 200 ml, 0 [place] 00 Refill(s) Thyroxine 0 Yes 50 Memoria 1-07 microgram, l 17:19: PO, Daily, 00 0 Refill(s) Omeprazole Yes 20 mg, PO, M emoria 02-14 BID, 0 l 17:19: Refill(s) Breo Yes 1 puff, [facility] Ellipta 100 1-07 INHALATION l mcg-25 mcg 17:19: , PRN, 0 [place] inhalation 00 Refill(s) powder Prolia 0 Yes SUB-Q, Memoria 07 q6mo, 0 l 17:19: Refill(s) Pravastatin Yes 10 mg, PO, Memoria 07 Daily, # l 17:19: 30 tab, 0 [place] Refill(s) Claritin Yes Daily, 0 Memor ia 02-14 Refill(s) l 17:19: [place] 00 Sucralfate Yes 1 gm, PO, Me moria 02-14 Bedtime, # l 17:19: 200 ml, 0 [place] 00 Refill(s) Thyroxine Yes 50 Memoria 1-07 microgram, l 17:19: PO, Daily, [place] 00 0 Refill(s) Omeprazole Yes 20 mg, PO, M emoria 02-14 BID, 0 l 17:19: Refill(s) Prolia Yes SUB-Q, Memoria 02-14 q6mo, 0 l 17:19: Refill(s) Pravastatin Yes 10 mg, PO, Memoria 02-14 Daily, # l 17:19: 30 tab, 0 [place] Refill(s) Claritin 0 Yes Daily, 0 Memor ia 07 Refill(s) l 17:19: [place] 00 Sucralfate 0 Yes 1 gm, PO, Me moria 07 Bedtime, # l 17:19: 200 ml, 0 [place] 00 Refill(s) levothyroxi Yes 50 Memori a ne 1-07 microgram, l 17:19: PO, Daily, 0 Refill(s) omeprazole 0 Yes 20 mg, PO, M emoria 1-07 BID, 0 l 17:19: Refill(s) Breo Yes 1 puff, [facility] Ellipta 100 1-07 INHALATION l mcg-25 mcg 17:19: , PRN, 0 Her [place] inhalation 00 Refill(s) powder Thyroxine Yes 50 Memoria 1-07 microgram, l 17:19: PO, Daily, 0 Refill(s) Omeprazole Yes 20 mg, PO, M emoria 07 BID, 0 l 17:19: Refill(s) Prolia 0 Yes SUB-Q, Memoria 02-14 q6mo, 0 l 17:19: Refill(s) Pravastatin Yes 10 mg, PO, Memoria 07 Daily, # l 17:19: 30 tab, 0 Refill(s) Claritin Yes Daily, 0 Memor ia 02-14 Refill(s) l 17:19: Sucralfate 0 Yes 1 gm, PO, Me moria 07 Bedtime, # l 17:19: 200 ml, 0 Refill(s) levothyroxi Yes 50 Memori a ne 1-07 microgram, l 17:19: PO, Daily, 0 Refill(s) omeprazole Yes 20 mg, PO, M emoria 02-14 BID, 0 l 17:19: Refill(s) Breo Yes 1 puff, [facility] Ellipta 100 1-07 INHALATION l mcg-25 mcg 17:19: , PRN, 0 Her [place] inhalation 00 Refill(s) powder Prolia Yes SUB-Q, Memoria -07 q6mo, 0 l 17:19: Refill(s) pravastatin Yes 10 mg, PO, Memoria 1-07 Daily, # l 17:19: 30 tab, 0 [place] 00 Refill(s) Claritin 0 Yes Daily, 0 Memor ia 02-14 Refill(s) l 17:19: sucralfate 0 Yes 1 gm, PO, Me moria 1-07 Bedtime, # l 17:19: 200 ml, 0 [place] 00 Refill(s) levothyroxi Yes 50ug Take 1 Univ ers ne 50 mcg 7-08 tablet by ity o f tablet 00:00: mouth [place] 00 every Medical morning. Branch levothyroxi Yes 50ug Take 1 Univ ers ne 50 mcg 7-08 tablet by ity o f tablet 00:00: mouth [place] 00 every Medical morning. Branch levothyroxi Yes 50ug Take 1 Univ ers ne 50 mcg 7-08 tablet by ity o f tablet 00:00: mouth [place] 00 every Medical morning. Branch levothyroxi Yes 50ug Take 1 Univ ers ne 50 mcg 7-08 tablet by ity o f tablet 00:00: mouth [place] 00 every Medical morning. Branch levothyroxi Yes 50ug Take 1 Univ ers ne 50 mcg 7-08 tablet by ity o f tablet 00:00: mouth [place] 00 every Medical morning. Branch albuterol Yes 2{puff} Inhale 2 U nivers (VENTOLIN 3-26 Puffs ity of HFA) 90 15:52: every 6 [place] mcg/actuati 03 (six) Medical on inhaler hours as Branc h needed for Wheezing or Shortness of Breath. VITAMIN K2 Yes 500ug Take 500 Un peg ORAL 3-26 mcg by ity of 15:52: mouth. [place] [id number] Medical Branch CALCIUM 2018-0 Yes Take by Univers CARBONATE/V 3-26 mouth. ity of ITAMIN D3 15:52: [place] (CALTRATE 03 Medical 600 + D Branch ORAL) Cholecalcif Yes Take by Uni vers jessica, 3-26 mouth. ity of Vitamin D3, 15:52: [place] (VITAMIN 03 Medical D3) 1,000 Branch unit capsule vitamin 2019-0 Yes 1000ug Take 1,000 Un peg B-12 3-26 mcg by ity of (VITAMIN 15:52: mouth [place] B-12) 1,000 03 daily. Medica l mcg tablet Branch albuterol 2018-0 Yes 2{puff} Inhale 2 U nivers (VENTOLIN 3-26 Puffs ity of HFA) 90 15:52: every 6 [place] mcg/actuati 03 (six) Medical on inhaler hours as Branc h needed for Wheezing or Shortness of Breath. VITAMIN K2 2019- Yes 500ug Take 500 Un peg ORAL 3-26 mcg by ity of 15:52: mouth. [place] [address] Medical Branch CALCIUM 2018-0 Yes Take by Univers CARBONATE/V 3-26 mouth. ity of ITAMIN D3 15:52: [place] (CALTRATE 03 Medical 600 + D Branch ORAL) Cholecalcif 0 Yes Take by Uni vers jessica, 3-26 mouth. ity of Vitamin D3, 15:52: [place] (VITAMIN 03 Medical D3) 1,000 Branch unit capsule vitamin 2019-0 Yes 1000ug Take 1,000 Un peg B-12 3-26 mcg by ity of (VITAMIN 15:52: mouth [place] B-12) 1,000 03 daily. Medica l mcg tablet Branch albuterol 2018-0 Yes 2{puff} Inhale 2 U nivers (VENTOLIN 3-26 Puffs ity of HFA) 90 15:52: every 6 [place] mcg/actuati 03 (six) Medical on inhaler hours as Branc h needed for Wheezing or Shortness of Breath. VITAMIN K2 2018- Yes 500ug Take 500 Un peg ORAL 3-26 mcg by ity of 15:52: mouth. [address] CALCIUM 2018-0 Yes Take by Univers CARBONATE/V 3-26 mouth. ity of ITAMIN D3 15:52: [place] (CALTRATE 03 Medical 600 + D Branch ORAL) Cholecalcif 0 Yes Take by Uni vers jessica, 3-26 mouth. ity of Vitamin D3, 15:52: [place] (VITAMIN 03 Medical D3) 1,000 Branch unit capsule vitamin 2019-0 Yes 1000ug Take 1,000 Un peg B-12 3-26 mcg by ity of (VITAMIN 15:52: mouth [place] B-12) 1,000 03 daily. Medica l mcg tablet Branch albuterol 2019-0 Yes 2{puff} Inhale 2 U nivers (VENTOLIN 3-26 Puffs ity of HFA) 90 15:52: every 6 [place] mcg/actuati 03 (six) Medical on inhaler hours as Branc h needed for Wheezing or Shortness of Breath. VITAMIN K2 2019- Yes 500ug Take 500 Un peg ORAL 3-26 mcg by ity of 15:52: mouth. [place] 03 Medical Branch CALCIUM 2019-0 Yes Take by Univer s CARBONATE/V 3-26 mouth. ity of ITAMIN D3 15:52: [place] (CALTRATE 03 Medical 600 + D Branch ORAL) Cholecalcif Yes Take by Uni vers jessica, 3-26 mouth. ity of Vitamin D3, 15:52: [place] (VITAMIN 03 Medical D3) 1,000 Branch unit capsule vitamin Yes 1000ug Take 1,000 Un peg B-12 3-26 mcg by ity of (VITAMIN 15:52: mouth [place] B-12) 1,000 03 daily. Medica l mcg tablet Branch albuterol Yes 2{puff} Inhale 2 U nivers (VENTOLIN 3-26 Puffs ity of HFA) 90 15:52: every 6 [place] mcg/actuati 03 (six) Medical on inhaler hours as Branc h needed for Wheezing or Shortness of Breath. VITAMIN K2 Yes 500ug Take 500 Un peg ORAL 3-26 mcg by ity of 15:52: mouth. [address] CALCIUM Yes Take by Univers CARBONATE/V 3-26 mouth. ity of ITAMIN D3 15:52: [place] (CALTRATE 03 Medical 600 + D Branch ORAL) Cholecalcif Yes Take by Uni vers jessica, 3-26 mouth. ity of Vitamin D3, 15:52: [place] (VITAMIN 03 Medical D3) 1,000 Branch unit capsule vitamin Yes 1000ug Take 1,000 Un peg B-12 3-26 mcg by ity of (VITAMIN 15:52: mouth [place] B-12) 1,000 03 daily. Medica l mcg tablet Branch citalopram Yes Univers 20 mg 9-16 ity of tablet 00:00: [facility] citalopram Yes Univers 20 mg 9-16 ity of tablet 00:00: [facility] citalopram Yes Univers 20 mg 9-16 ity of tablet 00:00: [facility] citalopram Yes Univers 20 mg 9-16 ity of tablet 00:00: [facility] citalopram Yes Univers 20 mg 9-16 ity of tablet 00:00: [facility] PROLIA 60 Yes U UTD Q 6 Uni vers mg/mL 8-23 MONTHS SC ity of injection 00:00: FOR 30 Medical Branch PROLIA 60 2017 Yes U UTD Q 6 Uni vers mg/mL 8-23 MONTHS SC ity of injection 00:00: FOR 30 Medical Branch PROLIA 60 Yes U UTD Q 6 Uni vers mg/mL 8-23 MONTHS SC ity of injection 00:00: FOR Medical Branch PROLIA 60 Yes U UTD Q 6 Uni vers mg/mL 8-23 MONTHS SC ity of injection 00:00: FOR 30 Medical Branch PROLIA 60 Yes U UTD Q 6 Uni vers mg/mL 8-23 MONTHS SC ity of injection 00:00: FOR Medical Branch fluticasone 2017 Yes Univer s 50 8-22 ity of mcg/actuati 00:00: on nasal 00 Medical spray Branch fluticasone [id number] Yes Univer s 50 8-22 ity of mcg/actuati 00:00: [place] on nasal 00 Medical spray Branch fluticasone [id number] Yes Univer s 50 8-22 ity of mcg/actuati 00:00: [place] on nasal 00 Medical spray Branch fluticasone [id number] Yes Univer s 50 8-22 ity of mcg/actuati 00:00: [place] on nasal 00 Medical spray Branch fluticasone 20170 Yes Univer s 50 8-22 ity of mcg/actuati 00:00: [place] on nasal 00 Medical spray Branch pravastatin 2017-0 Yes Univer s 10 mg 4-28 ity of tablet 00:00: Medical Branch pravastatin 2017-0 Yes Univer s 10 mg 4-28 ity of tablet 00:00: [place] [facility] pravastatin 2017-0 Yes Univer s 10 mg 4-28 ity of tablet 00:00: Medical Branch pravastatin 2017-0 Yes Univer s 10 mg 4-28 ity of tablet 00:00: Medical Branch pravastatin [id number] Yes Univer s 10 mg 4-28 ity of tablet 00:00: Medical Branch BREO 2016-0 Yes Univers ELLIPTA 3-30 ity of 200-25 00:00: [place] mcg/dose 00 Medical DsDv Branch BREO 2017-0 Yes Univers ELLIPTA 3-30 ity of 200-25 00:00: [place] mcg/dose 00 Medical DsDv Branch [facility] Yes Univers ELLIPTA 3-30 ity of 200-25 00:00: [place] mcg/dose 00 Medical DsDv Branch [facility] Yes Univers ELLIPTA 3-30 ity of 200-25 00:00: [place] mcg/dose 00 Medical DsDv [facility] Yes Univers ELLIPTA 3-30 ity of 200-25 00:00: [place] mcg/dose 00 Medical DsDv [facility] No 1puff(s Q1D [facility] Ellipta 100 Ellipta 100 ) Ellipta Family mcg-25 mcg-25 100 mcg-25 Pract ic mcg/dose mcg/dose mcg/dose e powder for powder for powder for inhalation inhalation inhalation Inhale 1 Inhale 1 Inhale 1 puff every puff every puff every day by day by day by inhalation inhalation inhalation route. route. route. Calcium 600 Calcium 600 No Calcium [place] + D(3) 1 + D(3) 1 600 + D(3) F amily tablet by tablet by 1 tablet P ractic mouth once mouth once by mouth e daily daily once daily Centrum Centrum No Centrum [place]ag e Silver Silver Silver Family Women 1 Women 1 Women 1 Practi c tablet by tablet by tablet by e mouth daily mouth daily mouth daily citalopram citalopram No 1 Q1D citalopram [place] 20 mg 20 mg 20 mg Family tablet Take tablet Take tablet Practic 1 tablet 1 tablet Take 1 e every day every day tablet by oral by oral every day route. route. by oral route. Claritin 10 Claritin 10 No 1 Q1D Claritin [place] mg tablet mg tablet 10 mg Fami ly Take 1 Take 1 tablet Practic tablet tablet Take 1 e every day every day tablet by oral by oral every day route. route. by oral route. FV Vitamin FV Vitamin No 1 Q1D FV Vitamin [place] C 1000 mg C 1000 mg C 1000 mg Family tablet Take tablet Take tablet Practic 1 tablet 1 tablet Take 1 e every day every day tablet by oral by oral every day route. route. by oral route. levothyroxi levothyroxi No 1 Q1D levothyrox [place] ne 75 mcg ne 75 mcg ine 75 mcg Family tablet Take tablet Take tablet Practic 1 tablet 1 tablet Take 1 e every day every day tablet by oral by oral every day route. route. by oral route. magnesium magnesium No 1 BID magnesium [facility] 250 mg 250 mg 250 mg Family tablet Take tablet Take tablet Practic 1 tablet 1 tablet Take 1 e twice a day twice a day tablet by oral by oral twice a route. route. day by oral route. memantine 5 memantine 5 No 1 BID memantine [place] mg tablet mg tablet 5 mg Famil y Take 1 Take 1 tablet Practic tablet tablet Take 1 e twice a day twice a day tablet by oral by oral twice a route. route. day by oral route. omeprazole omeprazole No 1capsul Q1D omeprazole [facility] 20 mg 20 mg e(s) 20 mg Family capsule,del capsule,del capsule,de Practic ayed ayed layed e release release release Take 1 Take 1 Take 1 capsule capsule capsule every day every day every day by oral by oral by oral route. route. route. pravastatin pravastatin No 1 Q1D pravastati [place] 10 mg 10 mg n 10 mg Family tablet Take tablet Take tablet Practic 1 tablet 1 tablet Take 1 e every day every day tablet by oral by oral every day route. route. by oral route. Prolia 1 Prolia 1 No Prolia 1 Kishan yaquelin injection injection injection Family every 6 every 6 every 6 Practi c months months months e turmeric turmeric No 1capsul Q1D turmeric [facility] 400 mg 400 mg e(s) 400 mg Family capsule capsule capsule Practi c Take 1 Take 1 Take 1 e capsule capsule capsule every day every day every day by oral by oral by oral route. route. route. Tylenol Tylenol No 2 Q6H Tylenol [place] e Extra Extra Extra Family Strength Strength Strength Pra ctic 500 mg 500 mg 500 mg e tablet Take tablet Take tablet 2 tablets 2 tablets Take 2 every 6 every 6 tablets hours by hours by every 6 oral route oral route hours by as needed. as needed. oral route as needed. Vitamin D3 Vitamin D3 No 1capsul TID Vitamin D3 [facility] 25 mcg 25 mcg e(s) 25 mcg Family (1,000 (1,000 (1,000 Practic unit) unit) unit) e capsule capsule capsule Take 1 Take 1 Take 1 capsule 3 capsule 3 capsule 3 times a day times a day times a by oral by oral day by route. route. oral route. vitamin E vitamin E No 1capsul Q1D vitamin E [facility] 100 unit 100 unit e(s) 100 unit Fam shirin capsule capsule capsule Practi c Take 1 Take 1 Take 1 e capsule capsule capsule every day every day every day by oral by oral by oral route. route. route. vitamin K2 vitamin K2 No 1capsul Q1D vitamin K2 [place] 100 mcg 100 mcg e(s) 100 mcg Family capsule capsule capsule Practi c Take 1 Take 1 Take 1 e capsule capsule capsule every day every day every day by oral by oral by oral route. route. route. Immunizations Ordered Filled Immunization Date Status Comments [facility] Immunization Name Name SARS-COV-2 COVID-19 2021-08-13 Completed Unive rsity of PFIZER LILLIAM-SUCROSE 00:00:00 [place] [facility] VACCINE (OVIEDO TOP) Branch SARS-COV-2 COVID-19 2021-08-13 Completed Unive rsity of PFIZER LILLIAM-SUCROSE 00:00:00 [place] [facility] VACCINE (OVIEDO TOP) Branch SARS-COV-2 COVID-19 2021-08-13 Completed Unive rsity of PFIZER LILLIAM-SUCROSE 00:00:00 [place] [facility] VACCINE (OVIEDO TOP) Branch SARS-COV-2 COVID-19 2021-08-13 Completed Unive rsity of PFIZER LILLIAM-SUCROSE 00:00:00 [place] [facility] VACCINE (OVIEDO TOP) Branch SARS-COV-2 COVID-19 2020-11-18 Completed Unive rsity of PFIZER VACCINE 00:00:00 [facility] Branch SARS-COV-2 COVID-19 2020-11-18 Completed Unive rsity of PFIZER VACCINE 00:00:00 [facility] Branch SARS-COV-2 COVID-19 2020-11-18 Completed Unive rsity of PFIZER VACCINE 00:00:00 [facility] Branch SARS-COV-2 COVID-19 2020-11-18 Completed Unive rsity of PFIZER VACCINE 00:00:00 [facility] Branch SARS-COV-2 COVID-19 2020-11-18 Completed Unive rsity of PFIZER VACCINE 00:00:00 [facility] Branch SARS-COV-2 COVID-19 2020-04-27 Completed Unive rsity of PFIZER VACCINE 00:00:00 [facility] Branch SARS-COV-2 COVID-19 2020-04-27 Completed Unive rsity of PFIZER VACCINE 00:00:00 [facility] Branch SARS-COV-2 COVID-19 2020-04-27 Completed Unive rsity of PFIZER VACCINE 00:00:00 [facility] SARS-COV-2 COVID-19 2020-04-27 Completed Unive rsity of PFIZER VACCINE 00:00:00 [facility] SARS-COV-2 COVID-19 2020-04-27 Completed Unive rsity of PFIZER VACCINE 00:00:00 [facility] SARS-COV-2 COVID-19 2020-04-06 Completed Unive rsity of PFIZER VACCINE 00:00:00 [facility] SARS-COV-2 COVID-19 2020-04-06 Completed Unive rsity of PFIZER VACCINE 00:00:00 [facility] SARS-COV-2 COVID-19 2020-04-06 Completed Unive rsity of PFIZER VACCINE 00:00:00 [facility] SARS-COV-2 COVID-19 2020-04-06 Completed Unive rsity of PFIZER VACCINE 00:00:00 [facility] SARS-COV-2 COVID-19 2020-04-06 Completed Unive rsity of PFIZER VACCINE 00:00:00 [facility] Vital Signs Vital Name Observation Time Observation Value Comments Source Systolic blood 2022-05-10 21:30:00 145 mm[Hg] Univer sity of pressure [facility] Diastolic blood 2022-05-10 21:30:00 72 mm[Hg] Unive rsity of pressure [facility] Heart rate 2022-05-10 21:30:00 65 /min [facility] Respiratory rate 2022-05-10 21:30:00 16 /min [facility] in 2022-05-10 21:30:00 99 /min [facility] Arterial blood by [facility] Pulse oximetry [place] Body temperature 2022-05-10 17:54:00 36.72 Vira Univ [address] of [facility] Body height 2022-05-10 17:54:00 149.9 cm [facility] Body weight 2022-05-10 17:54:00 64.411 kg [facility] BMI 2022-05-10 17:54:00 28.68 kg/m2 [facility] Systolic blood 2022-03-05 22:36:00 153 mm[Hg] Univer sity of pressure [facility] Diastolic blood 2022-03-05 22:36:00 84 mm[Hg] Unive rsity of pressure [facility] Heart rate 2022-03-05 22:35:00 80 /min Universi ty [facility] Body temperature 2022-03-05 22:35:00 36.33 Vira Univ [address] of [facility] Respiratory rate 2022-03-05 22:35:00 17 /[facility] Body weight 2022-03-05 22:35:00 64.365 [address] [facility] BMI 2022-03-05 22:35:00 [facility] 2022-03-05 22:35:00 97 /min [facility] Arterial blood by [facility] Pulse oximetry Branch BP Diastolic 2020-07-11 00:00:00 76 mm[Hg] [facility] Height 2020-07-11 00:00:00 49 [in_i] [facility] Practice BMI (Body Mass 2020-07-11 00:00:00 43.6 kg/m2 [facility] Family Index) Practice BP Systolic 2020-07-11 00:00:00 132 mm[Hg] [facility] Body Weight 2020-07-11 00:00:00 149 [lb_av] [facility] Practice Systolic (mm Hg) 2022-08-07 19:04:00 Esequiel rial [place] Diastolic (mm Hg) 2022-08-07 19:04:00 Mem orial [place] Heart Rate 2022-08-07 19:04:00 [facility] [place] Height 2022-08-07 19:04:00 4 [ft_i] [facility] [place] Weight 2022-08-07 19:04:00 [facility] [place] BMI Calculated 2022-08-07 19:04:00 Memori al [place] Systolic (mm Hg) 2022-01-23 21:38:00 Esequiel rial [place] Diastolic (mm Hg) 2022-01-23 21:38:00 Mem orial [place] Heart Rate 2022-01-23 21:38:00 [facility] [place] Height 2022-01-23 21:38:00 4 [ft_i] [facility] [place] Weight 2022-01-23 21:38:00 [facility] [place] BMI Calculated 2022-01-23 21:38:00 Memori al [place] Systolic (mm Hg) 2021-10-23 20:14:00 Esequiel rial [place] Diastolic (mm Hg) 2021-10-23 20:14:00 Mem orial [place] Heart Rate 2021-10-23 20:14:00 [facility] [place] Respitory Rate 2021-10-23 20:14:00 Memori al [place] Height 2021-10-23 20:14:00 144.78 cm [facility] [place] Weight 2021-10-23 20:14:00 [facility] [place] BMI Calculated 2021-10-23 20:14:00 Memori al [place] Systolic (mm Hg) 2021-04-22 13:57:00 Esequiel rial [place] Diastolic (mm Hg) 2021-04-22 13:57:00 Mem orial [place] Heart Rate 2021-04-22 13:57:00 [facility] [place] Respitory Rate 2021-04-22 13:57:00 Memori al [place] Height 2021-04-22 13:57:00 149.86 cm [facility] [place] Weight 2021-04-22 13:57:00 [facility] [place] BMI Calculated 2021-04-22 13:57:00 Memori al [place] Systolic (mm Hg) 2021-01-08 21:49:00 Esequiel rial [place] Diastolic (mm Hg) 2021-01-08 21:49:00 Mem orial [place] Heart Rate 2021-01-08 21:49:00 [facility] [place] Respitory Rate 2021-01-08 21:49:00 Memori al [place] Height 2021-01-08 21:49:00 147.32 cm [facility] [place] Weight 2021-01-08 21:49:00 [facility] [place] BMI Calculated 2021-01-08 21:49:00 Memori al [place] Systolic (mm Hg) 2020-10-08 19:36:00 Esequiel rial [place] Diastolic (mm Hg) 2020-10-08 19:36:00 Mem orial [place] Heart Rate 2020-10-08 19:36:00 [facility] [place] Respitory Rate 2020-10-08 19:36:00 Memori al [place] Height 2020-10-08 19:36:00 149.86 cm [facility] [place] Weight 2020-10-08 19:36:00 [facility] [place] BMI Calculated 2020-10-08 19:36:00 Memori al [place] Systolic (mm Hg) 2020-04-04 21:40:00 Esequiel rial [place] Diastolic (mm Hg) 2020-04-04 21:40:00 Mem orial [place] Heart Rate 2020-04-04 21:40:00 [facility] [place] Respitory Rate 2020-04-04 21:40:00 Memori al [place] Height 2020-04-04 21:40:00 147.32 cm [facility] [place] Weight 2020-04-04 21:40:00 [facility] [place] BMI Calculated 2020-04-04 21:40:00 Memori al [place] Systolic (mm Hg) 2020-02-15 17:11:00 Esequiel rial [place] Diastolic (mm Hg) 2020-02-15 17:11:00 Mem orial [place] Heart Rate 2020-02-15 17:11:00 [facility] [place] Respitory Rate 2020-02-15 17:11:00 Memori al [place] Height 2020-02-15 17:11:00 147.32 cm [facility] [place] Weight 2020-02-15 17:11:00 [facility] [place] BMI Calculated 2020-02-15 17:11:00 Mem[facility] [place] Procedures Procedure Date / Time Performing Clinician Source Performed LIPASE 2022-05-10 19:07:00 Catherine Morales [facility] HEPATIC FUNCTION PANEL 2022-05-10 19:07:00 Catherine Morales [facility] ([id number]) (ALB,T.PRO,BILI Medical Branch T,BU/BC,ALT,AST,ALK PHOS) BASIC METABOLIC PANEL (NA, 2022-05-10 19:07:00 Rayo Morales [facility] K, CL, CO2, GLUCOSE, BUN, Medica l Branch CREATININE, CA) CBC WITH DIFF 2022-05-10 19:07:00 Catherine Morales [facility] URINALYSIS 2022-05-10 18:30:00 Catherine Morales [facility] CONSENT/REFUSAL FOR 2022-05-10 17:35:08 [facility] TREATMENT [place] [facility] POCT SARS-COV-2 ANTIGEN 2022-03-05 22:48:00 Yvon Srinivasan [facility] ([facility]) Medical Branch ASSIGNMENT OF BENEFITS 2022-03-05 22:31:43 Doctor Unassigned, [facility] [place] [facility] SARS-COV-2 COVID-19 2021-08-13 13:35:57 Doctor Unassigned, [facility] [facility] VACCINE 12 YRS+,0.3ML,IM [facility] (PFIZER - OVIEDO TOP) SARS-COV-2 COVID-19 2020-11-18 21:11:00 Doctor Unassigned, [facility] VACCINE,0.3ML,IM (PFIZER) [facility] Plan of Care Planned Activity Planned Date Details Comments Source Instructions [facility] Encounters Start End Encounter Admission Attending Care Care Encounter Source Date/Time Date/Time Type Type Clinicians Facility Department ID 2023-09-03 2023-09-03 Outpatient MHIE MHIE [id number] Memoria 15:30:00 15:30:00 14 giana Blackmon 2022-08-07 2022-08-08 Outpatient MHIE MNA [id number] Memoria 19:15:00 04:59:59 Neurology 13 giana Blackmon 2022-08-07 2022-08-07 Outpatient MILLER Bautista MISCHER [id number] 14:15:00 23:59:59 Junioraly Badillo 2022-08-07 2022-08-07 Outpatient MHIE MHIE [id number] Memoria 14:15:00 14:15:00 13 giana Blackmon 2022-08-06 2022-08-06 Ambulatory MHIE MNA [id number] Memoria 20:00:00 20:00:00 Pre-Reg Neurology 12 giana Blackmon 2022-08-06 2022-08-06 Ambulatory MHIE MNA [id number] Memoria 16:15:00 16:15:00 Pre-Reg Neurology 11 l Tashia Blackmon 2022-08-06 2022-08-06 Outpatient MHIE MHIE [id number] Memoria 15:00:00 15:00:00 12 giana Blackmon 2022-08-06 2022-08-06 Outpatient MIRYAM BautistaSCHER MHMISCHER [id number] 15:00:00 15:00:00 Junior 12 Justino 2022-08-06 2022-08-06 Outpatient MHIE MHIE [id number] Memoria 11:15:00 11:15:00 11 giana Blackmon 2022-08-06 2022-08-06 Outpatient MIRYAM BautistaSCHER MHMISCHER [id number] 11:15:00 11:15:00 Junior 11 Justino 2022-07-24 2022-07-24 Ambulatory MHIE MNA [id number] Memoria 20:30:00 20:30:00 Pre-Reg Neurology 10 giana Yeeann 2022-07-24 2022-07-24 Outpatient MHIE MHIE [id number] Memoria 15:30:00 15:30:00 10 giana [place] 2022-07-24 2022-07-24 Outpatient MHIE MHIE [id number] Memoria 15:30:00 15:30:00 10 giana Blackmon 2022-07-24 2022-07-24 Outpatient MIRYAM BautistaSCHER MHMISCHER [id number] 15:30:00 15:30:00 Junior 10 Justino 2022-05-10 2022-05-10 Emergency X [facility] ERT [id number] Univers 12:55:00 16:41:00 , CATHERINE rothman [facility] 2022-05-10 2022-05-10 [facility] 1.2.840.114 [id number] Univers 12:55:00 16:41:00 , Catherine JORGE 350.1.13.10 flora Snyder 4.2.7.2.686 [facility] [phone] [place] [address] Branch 2022-03-05 2022-03-05 Outpatient Lola BROTHERS III, [facility] [id number] Univers 16:40:00 17:06:[address] [facility] 2022-03-05 2022-03-05 Urgent Rula Brothers [facility] 1.2.840.114 [id number] Univers 16:40:00 17:00:00 Care Unknown, Attending HEALTH 350.1.13.10 [facility] 4.2.7.2.686 Roberto Carlos as DULCE MARIA?BLEA [phone] [place] [address] MEDICAL OFFICE BUILDING 2022-03-05 2022-03-05 Orders Doctor SHANA 1.2.840.114 [id number] Univers 00:00:00 00:00:00 Only Unassigned, DONNIE 350.1.13.10 ity of [place] [facility] 4.2.7.2.686 Roberto Carlos as [phone] [address] 2022-01-23 2022-01-24 Outpatient MHIE MNA [id number] Memoria 21:45:00 05:59:59 Neurology 09 l Tashia Blackmon 2022-01-23 2022-01-24 Outpatient MHIE MNA [id number] Memoria 21:45:00 05:59:59 Neurology 09 giana [place] Neymar 2022-01-23 2022-01-23 Outpatient MIRYAM BautistaSCHMIKE MHMISCHER [id number] 15:45:00 23:59:59 Junior Mikala Justino 2022-01-23 2022-01-23 Outpatient MHIE MHIE [id number] Memoria 15:45:00 15:45:00 giana Neymar 2021-10-23 2021-10-24 Outpatient nullFlavo MNA [id number] Memoria 20:30:00 04:59:59 r Neurology 08 giana [place] Neymar 2021-10-23 2021-10-24 Outpatient nullFlavo MNA [id number] Memoria 20:30:00 04:59:59 r Neurology 08 giana Tashia Blackmon 2021-10-23 2021-10-23 Outpatient MIRYAM BautistaSCHER MHMISCHER [id number] 15:30:00 23:59:59 Junior Dario Justino 2021-10-23 2021-10-23 Outpatient MHIE MHIE [id number] Memoria 15:30:00 15:30:00 08 giana Neymar 2021-08-13 2021-08-13 Outpatient R ALEJANDRO [facility] [id number] Univers 09:30:00 09:30:[address] [facility] 2021-08-13 2021-08-13 Imm/Inj Vaccine, Adc Family Medicine [facility] 1.2.840.114 [id number] Univers 09:30:00 09:30:00 Visit Matthias Allen 350.1.13 .10 lorna [facility] 4.2.7.2.686 Roberto Carlosmarly hayes [facility] [phone] [place] dical [address] 2021-04-22 2021-04-23 Outpatient nullFlavo MNA [id number] Memoria 14:00:00 04:59:59 r Neurology 07 l Tashia Blackmon 2021-04-22 2021-04-23 Outpatient nullFlavo MNA [id number] Memoria 14:00:00 04:59:59 r Neurology 07 l Tashia Blackmon 2021-04-22 2021-04-22 Outpatient MIRYAM BautistaSCHER MHMISCHER [id number] 09:00:00 23:59:59 Junior Angeline Justino 2021-04-22 2021-04-22 Outpatient MHIE MHIE [id number] Memoria 09:00:00 09:00:00 07 giana Neymar 2021-01-08 2021-01-09 Outpatient nullFlavo MNA [id number] Memoria 21:30:00 05:59:59 r Neurology 06 giana Tashia Blackmon 2021-01-08 2021-01-09 Outpatient nullFlavo MNA [id number] Memoria 21:30:00 05:59:59 r Neurology 06 l Tashia Blackmon 2021-01-08 2021-01-08 Outpatient MIRYAM BautistaSCHMIKE MHMISCHER [id number] 15:30:00 23:59:59 Junior Rodríguez Justino 2021-01-08 2021-01-08 Outpatient MHIE MHIE [id number] Memoria 15:30:00 15:30:00 06 giana Blackmon 2020-11-18 2020-11-18 Outpatient [facility] [id number] Univers 16:20:00 16:20:[address] [facility] 2020-11-18 2020-11-18 Imm/Inj Nurse, Adc Pob Immunization [facility] 1.2.840.114 [id number] Univers 16:05:48 16:06:54 Visit AlejandroMatthiaston 350.1.13 .10 ity [facility] 4.2.7.2.686 Mahad Parr [phone] Va dical [address] 2020-10-08 2020-10-09 Outpatient nullFlavo MNA [id number] Memoria 19:00:00 04:59:59 r Neurology 05 l Tashia Blackmon 2020-10-08 2020-10-09 Outpatient nullFlavo MNA [id number] Memoria 19:00:00 04:59:59 r Neurology 05 l Tashia Blackmon 2020-10-08 2020-10-08 [id number] 14:00:00 23:59:59 Junior 05 Justino 2020-10-08 2020-10-08 Outpatient MHIE MHIE [id number] Memoria 14:00:00 14:00:00 05 giana Blackmon 2020-07-16 2020-07-16 Outpatient Miller_S_AH VFP VFP [id number] [facility] 09:47:00 09:47:00 [id number] Family Practic e 2020-07-15 2020-07-15 Outpatient Miller_S_AH VFP VFP [id number] [facility] 11:19:00 11:19:00 [id number] Family Practic e 2020-07-11 2020-07-11 Outpatient Miller_S_AH VFP VFP [id number] [facility] 11:57:00 11:57:00 [id number] Family Practic e 2020-07-11 2020-07-11 Mellissa VFP [place] - [id number] V illage 00:00:00 00:00:00 [facility] Amy Chaparro - Practi c JDE DEVELOPER: [address] VM_[email or web address]_V@H_ e Sli [address], [address], [place] [address] , Ph. 2020-07-05 2020-07-05 Outpatient Miller_S_AH VFP VFP [id number] [place] 07:13:00 07:13:00 [id number] Family Practic e 2020-06-20 2020-06-20 Outpatient Bao-Mbayo VFP VFP [id number] [facility] 12:40:00 12:40:00 _A_AH 49527 Family Practic e 2020-06-04 2020-06-04 Ambulatory nullFlavo MNA [id number] Memoria 20:30:00 20:30:00 Pre-Reg r Neurology 04 l [place] Ne[place] 2020-06-04 2020-06-04 Ambulatory nullFlavo MNA [id number] Memoria 20:30:00 20:30:00 Pre-Reg r Neurology 04 l Tashia Blackmon 2020-06-04 2020-06-04 Outpatient MHIE DEONIE [id number] Memoria 15:30:00 15:30:00 Jeramie giana Blackmon 2020-06-04 2020-06-04 Outpatient MILLER Bautista MHMISCHER [id number] 15:30:00 15:30:00 Junior Badillo 2020-04-27 2020-04-27 Outpatient [facility] [id number] Univers 08:30:00 08:30:00 [facility] 2020-04-06 2020-04-06 Outpatient [facility] [id number] Univers 08:55:00 08:55:00 [facility] 2020-04-04 2020-04-05 Outpatient nullFlavo MNA [id number] Memoria 21:45:00 05:59:59 r Neurology 03 l Tashia Blackmon 2020-04-04 2020-04-05 Outpatient nullFlavo MNA [id number] Memoria 21:45:00 05:59:59 r Neurology 03 l Tashia Blackmon 2020-04-04 2020-04-04 Outpatient MIRYAM BautistaSCHMIKE MHMISCHER [id number] 15:45:00 23:59:59 Junior Mimi Badillo 2020-04-04 2020-04-04 Outpatient MHIE MHIE [id number] Memoria 15:45:00 15:45:00 03 giana Blackmon 2020-03-22 2020-03-22 Ambulatory nullFlavo MNA [id number] Memoria 15:30:00 15:30:00 Pre-Reg r Neurology 02 giana Blackmon 2020-03-22 2020-03-22 Ambulatory nullFlavo MNA [id number] Memoria 15:30:00 15:30:00 Pre-Reg r Neurology 02 l Tashia Yeeann 2020-03-22 2020-03-22 Outpatient MHIE MHIE [id number] Memoria 09:30:00 09:30:00 02 giana Blackmon 2020-03-22 2020-03-22 [facility] [id number] 09:30:00 09:30:00 Junior Justino 2020-03-21 2020-03-21 Ambulatory nullFlavo MNA [id number] Memoria 16:45:00 16:45:00 Pre-Reg r Neurology 01 giana Yeeann 2020-03-21 2020-03-21 Ambulatory nullFlavo MNA [id number] Memoria 16:45:00 16:45:00 Pre-Reg r Neurology 01 giana Yeeann 2020-03-21 2020-03-21 Outpatient MHIE MHIE [id number] Memoria 10:45:00 10:45:00 01 giana Neymar 2020-03-21 2020-03-21 Outpatient [facility] [id number] 10:45:00 10:45:00 Junior Justino 2020-02-15 2020-02-16 Outpatient nullFlavo MNA [id number] Memoria 16:45:00 05:59:59 r Neurology 00 giana [place] Neymar 2020-02-15 2020-02-16 Outpatient nullFlavo MNA [id number] Memoria 16:45:00 05:59:59 r Neurology 00 giana Tashia Blackmon 2020-02-15 2020-02-15 Outpatient Michele NIK MISCHER 001 [id number] 10:45:00 23:59:59 Junior 00 Justino 2019-03-29 2019-03-29 Outpatient Bao-Rayo VFP VFP [id number] [facility] 07:12:00 07:12:00 _A_AH [id number] Family Practic e 2019-03-29 2019-03-29 Outpatient Bao-Rayo COLINP VFP [id number] [facility] 07:12:00 07:12:00 _A_AH 12434 Family Practic e 2019-03-29 2019-03-29 Outpatient Bao-Rayo VFP VFP [id number] [facility] 07:12:00 07:12:00 _A_AH [id number] Family Practic e 2019-01-30 2019-01-30 Outpatient DRE VALIENTE [facility] [id number] [facility] 09:45:28 23:59:[address] [facility] 2018-08-29 2018-08-29 Orders Doctor SHANA 1.2.840.114 [id number] 00:00:00 00:00:00 Only Unassigned, DONNIE 350.1.13.10 [place] [facility] 4.2.7.2.686 [id number] Results Test Description Test Time Test Comments Results Result Comments Source BASIC METABOLIC PANEL (NA, K, CL, CO2, GLUCOSE, BUN, 2022-05 19:43:45 CREATININE, CA) Test Item Value Reference Range Interpretation Comme nts NA (test code = 8432216078) 135 mmol/L 135-145 K (test code = 3741382398) 4.0 mmol/L 3.5-5.0 CL (test code = 9723309056) 101 mmol/L 98-108 CO2 TOTAL (test code = 26 mmol/L 23-31 2375243824) AGAP (test code = 1491866204) 8 2-16 BUN (test code = 6298729489) 13 mg/dL 7-23 GLUCOSE (test code = 1692359574) 79 mg/dL 70-110 CREATININE (test code = 0.70 mg/dL 0.50-1.04 5741831193) CALCIUM (test code = 8921910517) 9.1 mg/dL 8.6-10.6 eGFR (test code = 4837395299) 80.7 mL/min/1.73m2 ROSANNE (test code = ROSANNE) Association of Glomerular Filtration Rate (GFR) and Staging of Kidney Disease* + +--------- + ----+| GFR (mL/min/1.73 m2) ?| With Kidney Damage ?| ?Without Kidney Damage+ +--- + +| ?>90 ?| ?Stage one ?| ? Normal ?+ +-------- + -----+| ?60-89 ?| ?Stage two ?| ? Decreased GFR ? + +--------- + ----+| ?30-59 ?| ?Stage three ?| ? Stage three ? + +--------- + ----+| ?15-29 ?| ?Stage four ? | ? Stage four ?+ +-------- + -----+| ?<15 (or dialysis) ? ?| ?Stage five ? | ? Stage five ?+ +-------- + -----+ *Each stage assumes the associated GFR level has been in effect for at least three months. ?Stages 1 to 5, with or without kidney disease, indicate chronic kidney disease. Notes: Determination of stages one and two (with eGFR >59mL/min/1.73 m2) requires estimation of kidney damage for at least three months as defined by structural or functional abnormalities of the kidney, manifested by either:Pathological abnormalities or Markers of kidney damage (including abnormalities in the composition of the blood or urine or abnormalities in imaging tests). [facility] (ALB,T.PRO,BILI T,BU/BC,ALT,AST,ALK PHOS)2022-05-10 19:43:45 Test Item Value Reference Range Interpretation Comments TOTAL BILI (test code = 3043915050) 0.6 mg/dL 0.1-1.1 BILI UNCON (test code = 2677256778) 0.4 mg/dL 0.1-1.1 BILI CONJ (test code = 2690247513) 0.0 mg/dL 0.0-0.3 T PROTEIN (test code = 3207207409) 7.0 g/dL 6.3-8.2 ALBUMIN (test code = 5814298823) 4.4 g/dL 3.5-5.0 ALK PHOS (test code = 3940362948) 62 U/L 34-122 ALTv (test code = 1742-6) 19 U/L 5-35 AST(SGOT) (test code = 5247552826) 33 U/L 13-40 Lab Interpretation (test code = Normal 30549-7) [facility]2023-[facility] 19:43:45 Test Item Value Reference Range Interpretation Comments LIPASE (test code = 9684408286) 90 U/L 0-220 Lab Interpretation (test code = Normal 49104-0) [facility]leCB WITH [id number] 19:28:04 Test Item Value Reference Range Interpretation Comments WBC (test code = 6.06 See_Comment [Automated 1584-2) message] The sy stem which generated this result transmitted reference range : 4.30 - 11.10 10*3/?L. The reference range was not used to interpret this result as normal/abnormal . RBC (test code = 4.16 See_Comment [Automated 854-8) message] The sy stem which generated this result transmitted reference range : 3.93 - 5.25 10*6/?L. The reference range was not used to interpret this result as normal/abnormal . HGB (test code = 13.0 g/dL 11.6-15.0 718-7) HCT (test code = 39.0 % 35.7-45.2 4544-3) MCV (test code = 93.8 fL 80.6-95.5 787-2) MCH (test code = 31.3 pg 25.9-32.8 785-6) MCHC (test code = 33.3 g/dL 31.6-35.1 786-4) RDW-SD (test code = 42.5 fL 39.0-49.9 85258-8) RDW-CV (test code = 12.3 % 12.0-15.5 788-0) PLT (test code = 253 See_Comment [Automated 827-3) message] The sy stem which generated this result transmitted reference range : 166 - 358 10*3/ ?L. The reference r amaury was not used to interpret this result as normal/abnormal . MPV (test code = 10.0 fL 9.5-12.9 42638-4) NRBC/100 WBC (test 0.0 See_Comment [Automat ed code = 5022793194) message] The system which generated this result transmitted reference range : 0.0 - 10.0 /100 WBCs. The refer ence range was not u sed to interpret th is result as normal/abnormal . NRBC x10^3 (test code See_Comment [Auto mated = 0127873624) message] The s ystem which generated this result transmitted reference range : 10*3/?L. The reference range was not used to interpret this result as normal/abnormal . GRAN MAT (NEUT) % 55.7 % (test code = 770-8) IMM GRAN % (test code 0.30 % = 5136831656) LYMPH % (test code = 30.9 % 736-9) MONO % (test code = 8.6 % 5905-5) EOS % (test code = 3.0 % 713-8) BASO % (test code = 1.5 % 706-2) GRAN MAT x10^3(ANC) 3.38 10*3/uL 1.88-7.09 (test code = 8570769818) IMM GRAN x10^3 (test 0.00-0.06 code = 9647464681) LYMPH x10^3 (test code 1.87 10*3/uL 1.32-3.29 = 731-0) MONO x10^3 (test code 0.52 10*3/uL 0.33-0.92 = 742-7) EOS x10^3 (test code = 0.18 10*3/uL 0.03-0.39 711-2) BASO x10^3 (test code 0.09 10*3/uL 0.01-0.07 H = 704-7) Lab Interpretation Abnormal (test code = 66635-7) [facility] SARS-COV-2 ANTIGEN (BINAX NOW)2022-03-05 22:48:00 Test Item Value Reference Range Interpretation Comments POCT SARS-COV-2 ANTIGEN Not Detected Not Detected (test code = 59349-7) On board controls Yes acceptable with C Line (test code = 3574) ROSANNE (test code = ROSANNE) accurate development and interpretation of all internal controls Lab Interpretation Normal (test code = 04937-9) [facility]2021-01-07 18:17:00 Test Item Value Reference Range Interpretation Comments Sed Rate (test code = Sed Rate) 9 [facility]wallUiwyhysCFIAYHHVTZ5591-70-84 18:17:00 Test Item Value Reference Range Interpretation Comments C-REACTIVE PROTEIN (test code = 3.5 C-REACTIVE PROTEIN) [place]861-01-07 18:17:00 Test Item Value Reference Range Interpretation Comments Homocyst Tot (test code = Homocyst Tot) 14.2 [facility]TjqdkipXMYFEUYSDU3449-57-66 18:17:00 Test Item Value Reference Range Interpretation Comments Sed Rate (test code = Sed Rate) 9 [facility]wallKcwaepcXCTHCTMGRJ2979-06-52 18:17:00 Test Item Value Reference Range Interpretation Comments C-REACTIVE PROTEIN (test code = 3.5 C-REACTIVE PROTEIN) [place] 297861-01-07 18:17:00 Test Item Value Reference Range Interpretation Comments Homocyst Tot (test code = Homocyst Tot) 14.2 [place] 655331-01-07 18:17:00 Test Item Value Reference Range Interpretation Comments Sed Rate (test code = Sed Rate) 9 [facility] RockwallRafaldbDAGTACBFMB7079-01-25 18:17:00 Test Item Value Reference Range Interpretation Comments C-REACTIVE PROTEIN (test code = 3.5 C-REACTIVE PROTEIN) [place] 297861-01-07 18:17:00 Test Item Value Reference Range Interpretation Comments Homocyst Tot (test code = Homocyst Tot) 14.2 [place] 655331-01-07 18:17:00 Test Item Value Reference Range Interpretation Comments Sed Rate (test code = Sed Rate) 9 [place] 297861-01-07 18:17:00 Test Item Value Reference Range Interpretation Comments C-REACTIVE PROTEIN (test code = 3.5 C-REACTIVE PROTEIN) [place] 297861-01-07 18:17:00 Test Item Value Reference Range Interpretation Comments Homocyst Tot (test code = Homocyst Tot) 14.2 [place] 655331-01-07 18:17:00 Test Item Value Reference Range Interpretation Comments Sed Rate (test code = Sed Rate) 9 [place] 297861-01-07 18:17:00 Test Item Value Reference Range Interpretation Comments C-REACTIVE PROTEIN (test code = 3.5 C-REACTIVE PROTEIN) [facility]wallQmpydfqLOLEQAIYLH1023-17-21 18:17:00 Test Item Value Reference Range Interpretation Comments Homocyst Tot (test code = Homocyst Tot) 14.2 [facility]anoAnwhyhpKDRVOJKEWQ2997-59-75 18:17:00 Test Item Value Reference Range Interpretation Comments Sed Rate (test code = Sed Rate) 9 [facility]wallCrrtychEYQDJGJVNO5218-14-16 18:17:00 Test Item Value Reference Range Interpretation Comments C-REACTIVE PROTEIN (test code = 3.5 C-REACTIVE PROTEIN) [facility] RockwallWhromtwWTNHKKCHHT7853-97-62 18:17:00 Test Item Value Reference Range Interpretation Comments Homocyst Tot (test code = Homocyst Tot) 14.2 [facility]"
[2022-09-06 16:11] LABS: Absolute Lymphocytes (CBC) 1.3 K/uL (0.7-4.9); Hematocrit 39.1 % (36.0-45.0); Lymphocytes % 21.7 % (15.3-44.8); MCV 94.3 fL (80-100); MPV 8.9 fL (7.6-11.3); RBC Red Blood Cell Count 4.15 M/uL (3.86-4.86)
--- NOTE | 2022-09-06 16:18 | RAD REPORT ---
EXAM DESCRIPTION: RAD - Chest Single View - 09/06/2022 4:11 pm CLINICAL HISTORY: ABDOMINAL DISTENTION COMPARISON: CHEST PA AND LAT 2 VIEW dated 05/09/2013; CHEST SINGLE VIEW dated 06/03/2010; CHEST PA AND LAT 2 VIEW dated 03/30/2007; CHEST PA AND LAT 2 VIEW dated 03/28/2007 FINDINGS: Lines: None. Lungs: Increase coarsening of the pulmonary interstitial markings. Pleural: No significant pleural effusions or pneumothorax. Cardiac: The heart size is within normal limits. Mediastinum: Within normal limits. Bones: No acute fractures. Other: None IMPRESSION: Increase coarsening of the pulmonary interstitial markings could reflect a nonspecific i nfectious or inflammatory process such as bronchitis. No consolidative airspace disease .
[2022-09-06 16:41] LABS: Albumin 3.8 g/dL (3.4-5.0); Bilirubin Direct 0.2 mg/dL (0-0.2); Bilirubin Indirect, Calculated 0.2 mg/dL (0.2-0.8); Bilirubin Total 0.4 mg/dL (0.2-1.0); Magnesium 2.4 mg/dL (1.6-2.4); Potassium 3.6 mEq/L (3.5-5.1); Protein, Total 7.6 g/dL (6.4-8.2); Troponin High Sensitivity 7.2 pg/mL (<58.9)
[2022-09-06] MEDS ORDERED: PANTOPRAZOLE 40 MG INJ ONE (16:45)
[2022-09-06] MEDS ORDERED: ONDANSETRON 4 MG/2 ML VIAL ONE (16:45)
[2022-09-06] MEDS ORDERED: FAMOTIDINE 20 MG/2 ML VIAL IV ONE (16:45)
--- NOTE | 2022-09-06 17:22 | RAD REPORT ---
EXAM DESCRIPTION: CTAbdomen Pelvis W Contrast - 09/06/2022 5:00 pm CLINICAL HISTORY: ABD PAIN COMPARISON: Abdomen Pelvis W Contrast dated 11/29/2020; Abdomen Pelvis W Contrast dated 02/10/2017 ; CT ABD PELVIS W CONTRAST dated 11/13/2014; CT ABD PELVIS W CONTRAST dated 07/05/2008 TECHNIQUE: CT of the abdomen and pelvis was performed. All CT scans are performed using dose optimization technique as appropriate and may include automated exposure control or mA/KV adjustment according to patient size. FINDINGS: Lower chest: No acute abnormality. Liver: No acute abnormality or suspicious lesions. Biliary: Cholecystectomy Stomach: No significant focal abnormality. Duodenum: No significant focal abnormality. Pancreas: No significant abnormality. Spleen: No significant abnormality. Adrenal: No suspicious lesions. Kidney/ureter: No hydronephrosis. No renal calculi. Retroperitoneum: No retroperitoneal adenopathy. Vascular: No aneurysm. Bowel: No significant focal abnormality. Normal appendix. Peritoneum: No ascites or free air. Bladder: Grossly unremarkable. Reproductive: No adnexal masses. Hysterectomy Bones: No acute fracture. Other: Prior ventral hernia repair. IMPRESSION: No acute intra-abdominal or pelvic finding.
[2022-09-06] MEDS ORDERED: NA CHLORIDE 0.9% 500 ML ONE (17:55)
[2022-09-06 18:12] LABS: Specific Gravity 1.011 (1.005-1.030); Urine Bacteria None Seen /HPF (<20); Urine Bilirubin NEGATIVE (Negative); Urine Blood Negative (Negative); Urine Clarity Clear (Clear); Urine Color Colorless (Yellow); Urine Glucose NEGATIVE (Negative); Urine Protein NEGATIVE (Negative); Urine RBC <5 /HPF (None Seen); Urine Urobilinogen Normal (Normal); Urine pH 5.5 (5.0-7.0)
--- NOTE | 2022-09-06 18:22 | ER ---
Nurse's Notes [facility] Name: Rosalba Henry Age: 77 yrs Sex: Female : 1945 Arrival Date: 09/06/2022 Time: 15:04 Bed 7 Private MD: Diagnosis: Abnormal results of liver function studies;Abdominal pain, unspecified;Nausea Presentation: 09/06 15:24 Chief complaint: Black diarrhea and nausea x 2 days. Recently seen by Dr. Fuchs for hb elevated liver enzymes. Coronavirus screen: At this time, the client does not indicate any symptoms associated with coronavirus-19. Ebola Screen: No symptoms or risks identified at this time. Initial Sepsis Screen: Does the patient meet any 2 criteria? No. Patient's initial sepsis screen is negative. Does the patient have a suspected source of infection? No. Patient's initial sepsis screen is negative. Risk Assessment: Do you want to hurt yourself or someone else? Patient reports no desire to harm self or others. Onset of symptoms was September 05, 2022. 15:24 Method Of Arrival: Ambulatory hb 15:24 Acuity: PAULA 3 hb Historical: - Allergies: 15:28 No Known Allergies; hb - Home Meds: 15:28 levothyroxine 75 mcg capsule daily [Active]; atorvastatin oral [Active]; hb - PMHx: 15:28 Asthma; High Cholesterol; Hypothyroidism; Pancreatitis; hb - PSHx: 15:28 Cholecystectomy; Hemorrhoidectomy; hysterectomy; hb - Immunization history:: Adult Immunizations up to date. - Social history:: Smoking status: Patient denies any tobacco usage or history of. Screenin:32 [facility] ED Fall Risk Assessment (Adult) History of falling in the last 3 months, ph including since admission No falls in past 3 months (0 pts) Confusion or Disorientation No (0 pts) Intoxicated or Sedated No (0 pts) Impaired Gait No (0 pts) Mobility Assist Device Used No (0 pt) Altered Elimination No (0 pt) Score/Fall Risk Level 0 - 2 = Low Risk Oriented to surroundings, Maintained a safe environment, Hourly rounding (assess needs \T\ fall precautionary measures) done. Abuse screen: Denies threats or abuse. Denies injuries from another. Nutritional screening: No deficits noted. On. Tuberculosis screening: No symptoms or risk factors identified. Assessment: 15:58 General: Appears in no apparent distress. comfortable, Behavior is calm, cooperative, ph appropriate for age. Pain: Complains of pain in abdomen. Neuro: Level of Consciousness is awake, alert, obeys commands, Oriented to person, place, time, situation. Cardiovascular: Capillary refill < 3 seconds in bilateral fingers Patient's skin is warm and dry. Respiratory: Airway is patent Respiratory effort is even, unlabored. GI: Abdomen is non-distended, Reports lower abdominal pain, upper abdominal pain. GI: Reports bloody stool. Derm: Skin is pink, warm \T\ dry. 17:37 Reassessment: No changes from previously documented assessment. me1 Vital Signs: 15:24 BP 139 / 58; Pulse 73; Resp 16; Temp 99(O); Pulse Ox 100% on R/A; Weight 61.69 kg; hb Height 4 ft. 11 in. ; Pain 7/10; 15:45 BP 134 / 64; Pulse 71; Resp 16; Pulse Ox 100% on R/A; me1 17:00 BP 122 / 62; Pulse 68; Resp 16; Pulse Ox 99% ; ph 18:30 BP 134 / 64; Pulse 69; Resp 16; Pulse Ox 99% on R/A; ph 15:24 Body Mass Index 27.47 (61.69 kg, 149.86 cm) hb 15:24 Pain Scale: Adult hb ED Course: 15:08 Patient arrived in ED. kj1 15:08 Benjamin Lu PA is PHCP. cp 15:09 Virgilio Zhu DO is Attending Physician. cp 15:27 Netta Mccollum, RN is Primary Nurse. ph 15:28 Triage completed. hb 15:30 Arm band placed on. hb 16:13 XRAY Chest (1 view) In Process Unspecified. EDMS 16:33 Patient has correct armband on for positive identification. Placed in gown. Bed in low ph position. Call light in reach. Side rails up X2. Client placed on continuous cardiac and pulse oximetry monitoring. NIBP monitoring applied. 17:02 CT Abd/Pelvis - IV Contrast Only In Process Unspecified. EDMS 17:44 Urinalysis W/Microscopic Sent. me1 18:20 Mario Fuchs MD is Referral Physician. cp 18:45 No provider procedures requiring assistance completed. IV discontinued, intact, ph bleeding controlled, No redness/swelling at site. Pressure dressing applied. Administered Medications: 16:46 Drug: Pantoprazole IVP 40 mg Route: IVP; Site: right wrist; ph 18:52 Follow up: Response: No adverse reaction ph 16:46 Drug: Ondansetron IVP 4 mg Route: IVP; Site: right wrist; ph 18:52 Follow up: Response: No adverse reaction ph 16:46 Drug: Famotidine IVP 20 mg Route: IVP; Site: right wrist; ph 18:51 Follow up: Response: No adverse reaction ph 17:51 Drug: NS 0.9% IV 500 ml Route: IV; Rate: 500 ml/hr; Site: right wrist; me1 18:51 Follow up: Response: No adverse reaction; IV Status: Completed infusion; IV Intake: ph 500ml Medication: 16:33 VIS not applicable for this client. ph Intake: 18:51 IV: 500ml; Total: 500ml. ph Outcome: 18:21 Discharge ordered by MD. cp 18:44 Patient left the ED. ld1 18:44 Discharged to home via wheelchair, with family. ph 18:44 Condition: good 18:44 Discharge instructions given to patient, family, Instructed on discharge instructions, follow up and referral plans. medication usage, Demonstrated understanding of instructions, follow-up care, medications, Prescriptions given X 2. Signatures: Dispatcher [employer] Netta Burkett RN RN ph Benjamin Lu PA PA cp Baxter, Heather, RN RN Stephanie Scott [email or web address] Tiara Zhu RN RN 1 Miryam Parry RN RN ok1 Corrections: (The following items were deleted from the chart) 18:50 15:54 BP 134 / 64; Pulse 69bpm; Resp 16bpm; Pulse Ox 99% RA; me1 ph 18:50 15:45 BP 122 / 62; Pulse 68bpm; Resp 16bpm; Pulse Ox 99%; me1 ph
--- NOTE | 2022-09-06 18:22 | EDPHYS ---
Physician Documentation [facility] Name: Rosalba Henry Age: 77 yrs Sex: Female : 1945 Arrival Date: 09/06/2022 Time: 15:04 Bed 7 Private MD: ED Physician Virgilio Zhu HPI: 09/06 15:50 This 77 yrs old Female presents to ER via Ambulatory with complaints of cp Black/Tarry Stools, Abdominal Pain. 15:50 Patient is a 77-year-old female with past medical history significant for cp hyperlipidemia, asthma, hypothyroidism and pancreatitis. Patient presents to the emergency department with complaints of abdominal pain for the last 5 days, nausea and black tarry stools for the past 2 days. Patient reports a history of elevated liver enzymes and has been seen by Dr. Fuchs recently for this issue and has a follow-up appointment next week. Patient denies any fevers, denies diarrhea. Historical: - Allergies: 15:28 No Known Allergies; hb - Home Meds: 15:28 levothyroxine 75 mcg capsule daily [Active]; atorvastatin oral [Active]; hb - PMHx: 15:28 Asthma; High Cholesterol; Hypothyroidism; Pancreatitis; hb - PSHx: 15:28 Cholecystectomy; Hemorrhoidectomy; hysterectomy; hb - Immunization history:: Adult Immunizations up to date. - Social history:: Smoking status: Patient denies any tobacco usage or history of. ROS: 15:53 Constitutional: Negative for body aches, chills, fever, poor PO intake. cp 15:53 Cardiovascular: Negative for chest pain, edema, palpitations. 15:53 Respiratory: Negative for cough, shortness of breath, wheezing. 15:53 Abdomen/GI: Positive for abdominal pain, nausea, black/tarry stool, Negative for diarrhea, constipation, anorexia. 15:53 Back: Negative for pain at rest, pain with movement. 15:53 : Negative for urinary symptoms. cp 15:53 Neuro: Negative for altered mental status, dizziness, headache, numbness, syncope, near syncope, weakness. 15:53 All other systems are negative. cp Exam: 15:55 Constitutional: The patient appears in no acute distress, alert, awake, comfortable, cp non-diaphoretic, non-toxic, well developed, well nourished. 15:55 Head/Face: Normocephalic, atraumatic. cp 15:55 Eyes: Periorbital structures: appear normal, Conjunctiva: normal, no exudate, no injection, Sclera: no appreciated abnormality, Lids and lashes: appear normal, bilaterally. 15:55 ENT: External ear(s): are unremarkable, Nose: is normal, Mouth: Lips: moist, Oral mucosa: pink and intact, moist, Posterior pharynx: is normal, airway is patent, no erythema, no exudate. 15:55 Chest/axilla: Inspection: normal. 15:55 Cardiovascular: Rate: normal, Rhythm: regular. 15:55 Respiratory: the patient does not display signs of respiratory distress, Respirations: normal, no use of accessory muscles, no retractions, labored breathing, is not present, Breath sounds: are clear throughout, no decreased breath sounds, no stridor, no wheezing. 15:55 Abdomen/GI: Inspection: obese Bowel sounds: active, all quadrants, Palpation: soft, in all quadrants, mild abdominal tenderness, in the umbilical area, right upper quadrant, right lower quadrant and left lower quadrant, rebound tenderness, is not appreciated, involuntary guarding, is not appreciated, Rectal exam: Stool: black, the exam is chaperoned by the nurse. 15:55 Back: pain, is absent, ROM is normal. 15:55 Neuro: Orientation: to person, place \T\ time. Mentation: is normal, Motor: moves all fours, strength is normal, Sensation: no obvious gross deficits. 16:38 ECG was reviewed by the Attending Physician. cp Vital Signs: 15:24 BP 139 / 58; Pulse 73; Resp 16; Temp 99(O); Pulse Ox 100% on R/A; Weight 61.69 kg; hb Height 4 ft. 11 in. ; Pain 7/10; 15:45 BP 134 / 64; Pulse 71; Resp 16; Pulse Ox 100% on R/A; me1 17:00 BP 122 / 62; Pulse 68; Resp 16; Pulse Ox 99% ; ph 18:30 BP 134 / 64; Pulse 69; Resp 16; Pulse Ox 99% on R/A; ph 15:24 Body Mass Index 27.47 (61.69 kg, 149.86 cm) hb 15:24 Pain Scale: Adult hb MDM: 15:23 Patient medically screened. cp 16:00 Differential diagnosis: diverticulitis, hemorrhoids, hemorrhagic shock, GI Bleed, cp Hepatitis, non-specific abd pain, pancreatitis, Peptic Ulcer Disease, Perf. Duodenal Ulcer, Perf. Gastric Ulcer, Peritonitis, Pyelonephritis, Ureterolithiasis, urinary tract infection. 18:20 Data reviewed: vital signs, nurses notes, old medical records, EKG, radiologic studies, cp CT scan, plain films, and as a result, I will discharge patient. 18:20 I considered the following discharge prescriptions or medication management in the emergency department Medications were administered in the Emergency Department. See MAR. Counseling: I had a detailed discussion with the patient and/or guardian regarding: the historical points, exam findings, and any diagnostic results supporting the discharge/admit diagnosis, lab results, radiology results, the need for outpatient follow up, a manager universal. 09/06 15:42 Order name: Basic Metabolic Panel; Complete Time: 16:50 09/06 16:50 Interpretation: Normal except: NA 134; GLUC 138; GFR 64. 09/06 15:42 Order name: CBC with Diff; Complete Time: 16:50 09/06 16:51 Interpretation: Reviewed. 09/06 15:42 Order name: LFT's; Complete Time: 16:50 09/06 16:50 Interpretation: Normal except: AST 54; ALT 59; ALK 370; GLOB 3.8; A/G 1.0. 09/06 15:42 Order name: Magnesium; Complete Time: 16:50 09/06 15:42 Order name: NT PRO-BNP; Complete Time: 16:50 09/06 15:42 Order name: PT-INR; Complete Time: 16:50 09/06 15:42 Order name: Troponin HS; Complete Time: 16:50 09/06 15:42 Order name: Lipase; Complete Time: 16:50 09/06 16:51 Interpretation: LIP 58; Reviewed. 09/06 17:26 Order name: Urinalysis W/Microscopic 09/06 15:42 Order name: XRAY Chest (1 view); Complete Time: 16:50 09/06 15:56 Order name: CT Abd/Pelvis - IV Contrast Only; Complete Time: 17:24 09/06 17:24 Interpretation: Report reviewed. 09/06 15:42 Order name: EKG; Complete Time: 15:43 cp 09/06 15:42 Order name: Cardiac monitoring; Complete Time: 15:49 cp 09/06 15:42 Order name: EKG - Nurse/Tech; Complete Time: 16:33 cp 09/06 15:42 Order name: IV Saline Lock; Complete Time: 15:58 cp 09/06 15:42 Order name: Labs collected and sent; Complete Time: 15:58 cp 09/06 15:42 Order name: O2 Per Protocol; Complete Time: 15:49 cp 09/06 15:42 Order name: O2 Sat Monitoring; Complete Time: 15:49 cp EC:38 Rate is 69 beats/min. Rhythm is regular. TX interval is normal. QRS interval is normal. cp QT interval is normal. T waves are Inverted in lead aVR. Interpreted by me. Reviewed by me. Administered Medications: 16:46 Drug: Pantoprazole IVP 40 mg Route: IVP; Site: right wrist; ph 18:52 Follow up: Response: No adverse reaction ph 16:46 Drug: Ondansetron IVP 4 mg Route: IVP; Site: right wrist; ph 18:52 Follow up: Response: No adverse reaction ph 16:46 Drug: Famotidine IVP 20 mg Route: IVP; Site: right wrist; ph 18:51 Follow up: Response: No adverse reaction ph 17:51 Drug: NS 0.9% IV 500 ml Route: IV; Rate: 500 ml/hr; Site: right wrist; me1 18:51 Follow up: Response: No adverse reaction; IV Status: Completed infusion; IV Intake: ph 500ml Disposition: 16:07 Co-signature as Attending Physician, Virgilio TRINIDAD was immediately available on-site ms3 in the Emergency Department for consultation in the care of the patient. Disposition Summary: 09/06/22 18:21 Discharge Ordered Location: Home cp Problem: an ongoing problem cp Symptoms: have improved cp Condition: Stable cp Diagnosis - Abnormal results of liver function studies cp - Abdominal pain, unspecified cp - Nausea cp Followup: cp - With: Mario Fuchs MD - When: 2 - 3 days - Reason: Recheck today's complaints Discharge Instructions: - Discharge Summary Sheet cp - Abdominal Pain, Adult cp - Nausea, Adult cp - Liver Function Tests cp Forms: - Medication Reconciliation Form cp - Thank You Letter cp - Antibiotic Education cp - Prescription Opioid Use cp - Patient Portal Instructions cp Prescriptions: - Carafate 1 gram Oral Tablet - take 1 tablet by ORAL route 4 times per day take on an empty stomach, beginning cp on waking and last dose at bedtime. dissolve tablet in 6 oz warm water prior to ingestion; 100 tablet; Refills: 0, Product Selection Permitted - Zofran 4 mg Oral Tablet - take 1 tablet by ORAL route every 12 hours As needed; 20 tablet; Refills: 0, cp Product Selection Permitted Signatures: Dispatcher [employer] Netta Burkett, RN RN ph Benjamin Lu, KARYNA PA cp Betty Childs RN RN Virgilio Zhu DO DO ms3 Miryam Parry RN RN me1
[2022-09-06 19:02] VITALS: TEMP 99
[2022-09-06 19:03] VITALS: O2SAT 99
[2022-09-06 19:04] VITALS: BP 134/64
--- NOTE | 2022-09-07 18:51 | EKG ---
Test Date: 2022-09-06 Test Time: 16:32:12 Enterprise Infrastructure Architect: MEASUREMENT RESULTS: Intervals: Rate: 69 AL: 150 QRSD: 72 QT: 432 QTc: 462 [place]: P: 57 AL: 150 QRS: 21 T: 36 INTERPRETIVE STATEMENTS: Normal sinus rhythm Normal ECG Compared to ECG 05/11/2014 00:04:28 ST (T wave) deviation no longer present Electronically Signed On 09-07-22 18:48:34 CDT by Valdez Ngo
== END 2022-09-06 18:44 | disposition home or self-care (01) ==
LOC: ER 15:04
DX: R94.5 Abnormal results of liver function studies (principal); R11.0 Nausea; E03.9 Hypothyroidism, unspecified; E78.00 Pure hypercholesterolemia, unspecified
CPT/HCPCS: 93005; 85025; 81001; 80048; 36415; 83735; 85610; 80076; 84484; 83690; 83880; 74177; 71045; Q9967; C9113; J2405; J7040; 96361; 96374; 96375; 99284

== ENCOUNTER 2023-01-04 08:57 | Day surgery (SDC) | payer OTHER ==
[2023-01-04 09:52] LABS: Absolute Lymphocytes (CBC) 1.2 K/uL (0.7-4.9); Hematocrit 40.6 % (36.0-45.0); Lymphocytes % 24.1 % (15.3-44.8); MCV 93.7 fL (80-100); MPV 8.4 fL (7.6-11.3); Platelets 228 thou/uL (152-406); RBC Red Blood Cell Count 4.33 M/uL (3.86-4.86)
[2023-01-04 09:55] LABS: Protime INR 1.01
[2023-01-04] MEDS ORDERED: NA CHLORIDE 0.9% 1,000 ML ONE (10:30)
[2023-01-04] MEDS ORDERED: MIDAZOLAM HCL 2 MG/2 ML INJ ONE (10:33)
[2023-01-04] MEDS ORDERED: FENTANYL CITR 100 MCG/2 ML ONE (10:34)
[2023-01-04] MEDS ORDERED: NALOXONE HCL 2 MG/2 ML VIAL ONE (10:34)
[2023-01-04] MEDS ORDERED: FLUMAZENIL 0.1 MG/ML (5 mL VIAL) IV ONE (10:37)
[2023-01-04 12:40] VITALS: BMI 26.6
[2023-01-04] MEDS ORDERED: HYDROCODONE/APAP 5/325 MG TAB ONE (12:41)
--- NOTE | 2023-01-04 12:45 | RAD REPORT ---
EXAM DESCRIPTION: US - Liver Biopsy Procedure - 01/04/2023 11:09 am CLINICAL HISTORY: BX Elevated liver function tests. COMPARISON: No comparisons FINDINGS: Preoperative diagnosis: Elevated liver function tests.. Post operative diagnosis: Same. Conscious Sedation: 45 minutes monitored IV conscious sedation was utilized. Fluoroscopy time: None Contrast used: None Estimated blood loss: Minimal Specimens:2 x 18 gauge core biopsies The right flank was prepped and draped in the usual sterile fashion. 1% lidocaine was infiltrated int o the subcutaneous tissues for local anesthesia. Real time ultrasound scanning of the liver demonstra yajaira suitable sonographic window to the right lobe of the liver. Under ultrasound guidance, using a 18 -gauge, 6 cm long, 2 cm throw core biopsy gun, 2 specimens were obtained of the liver and sent to yanelis luong for evaluation. There were no complications. IMPRESSION: Technically successful ultrasound-guided nonfocal liver biopsy. 45 minutes of IV conscious sedation was utilized.
[2023-01-04 13:03] VITALS: O2SAT 100
[2023-01-04 14:17] VITALS: TEMP 98.2
[2023-01-04 14:20] VITALS: BP 121/53
== END 2023-01-04 14:00 | disposition home or self-care (01) ==
LOC: DS 08:57
PROVIDERS: ATTEND Internal Medicine Gastroenterology
DX: K76.0 Fatty (change of) liver, not elsewhere classified (principal); K74.00 Hepatic fibrosis, unspecified; K75.3 Granulomatous hepatitis, not elsewhere classified; R93.2 Abnormal findings on diagnostic imaging of liver and biliary tract; R94.5 Abnormal results of liver function studies; K83.8 Other specified diseases of biliary tract
CPT/HCPCS: 85025; 36415; 88313; 85610; 88307; 85730; 47000; J2250; J3010; J7030; J2310